=== PATIENT | female | born 1950 | race Caucasian/White ===

== ENCOUNTER 2020-11-10 09:24 | Outpatient (REF) | payer MEDICARE, SELFPAY ==
--- NOTE | ~2020-11-10 | CT_ITS ---
EXAMINATION: CT CHEST SCREENING CLINICAL INFORMATION: Nicotine dependence. COMPARISON: CT chest 10/25/2019. TECHNIQUE: Multidetector volumetric CT imaging of the chest was performed without contrast using low-dose technique. Additional 2D coronal and sagittal reformatted images and axial 3D maximum intensity projection (MIP) images were generated on the CT workstation. This CT examination was performed using dose optimization techniques as appropriate, variously including the following: *Automated exposure control *Adjustment of mA and/or kV according to patient size (this includes techniques or standardized protocols for targeted exams where dose is matched to indication/reason for exam; i.e. extremities or head) *Use of iterative reconstruction technique DLP: 52 mGy-cm FINDINGS: LUNGS: The lungs are well expanded and clear of acute pneumonic process. There is a 3 mm pleural-based left lower lobe nodule (axial image 329/6). The other described parenchymal nodules in the right middle lobe are not well visualized at this time. There are no new nodules seen. There is no consolidation or mass. There is no evidence of emphysema. MEDIASTINUM: The thyroid lobes are symmetrical and normal. The central trachea and the bronchi are widely patent. No abnormal-sized mediastinal or hilar lymph nodes are seen. The heart size and the great vessels are normal caliber. There are coronary artery calcifications present. PLEURA: There is no pleural effusion. No pleural mass or thickening. AXILLAE: No lymphadenopathy. UPPER ABDOMEN: The visualized liver, spleen, and pancreas appear unremarkable. Suspect a small hiatal hernia or distal esophageal thickening from reflux disease. OSSEOUS STRUCTURES: No lytic or sclerotic process seen. CT/CT lung screening IMPRESSION: Only a 3 mm pleural-based left lower lobe nodule is seen. The rest of 1-2 mm described nodules on the previous CT chest are not well visualized on this low screening CT chest exam. ASSESSMENT: Lung-RADS category 2: Benign RECOMMENDATION: Low dose annual CT chest.
== END 2020-11-10 09:25 | disposition home or self-care (01) ==
LOC: HO.CT 09:24
PROVIDERS: Visit Provider Physician Assistant Medical
DX: Z12.2 Encounter for screening for malignant neoplasm of respiratory organs (principal); F17.210 Nicotine dependence, cigarettes, uncomplicated
CPT/HCPCS: 71271

== ENCOUNTER 2022-03-06 07:33 | Outpatient (REF) | payer MEDICARE, SELFPAY ==
[2022-03-06 12:10] LABS: Alanine Aminotransferase 21 U/L (0-31); Albumin Level 4.2 g/dL (3.5-5.0); Alkaline Phosphatase 84 U/L (39-117); Anion Gap 13 (12-20); Aspartate Amino Transferase 23 U/L (5-31); Bilirubin Total 0.2 mg/dL (0.0-1.0); Blood Urea Nitrogen 13 mg/dL (9-16); Calcium 9.1 mg/dL (8.4-10.2); Carbon Dioxide 26 mmol/L (22-29); Chloride 107 mmol/L (96-108); Cholesterol 189 mg/dL; Estimated Glomerular Filt Rate > 60; Glucose Fasting 98 mg/dL (60-99); HDL Cholesterol 44 mg/dL; LDL Cholesterol Calculated 116 mg/dl; Potassium 4.3 mmol/L (3.3-5.1); Sodium 142 mmol/L (135-145); Total Protein 6.8 g/dL (6.5-8.0); Triglycerides 147 mg/dL
[2022-03-06 12:19] LABS: TSH reflex Free T4 1.56 uIU/mL (0.32-4.0); Vitamin D 25-OH Total 18.4 ng/mL (>30)
== END 2022-03-06 07:34 | disposition home or self-care (01) ==
LOC: HO.HMGCLDS 07:33
PROVIDERS: PCP Nurse Practitioner Family; Visit Provider Nurse Practitioner Family
DX: E78.00 Pure hypercholesterolemia, unspecified (principal); Z78.0 Asymptomatic menopausal state
CPT/HCPCS: 36415; 80053; 80061; 82306; 84443

== ENCOUNTER 2022-10-15 13:47 | Outpatient (REF) | payer MEDICARE, SELFPAY ==
--- NOTE | ~2022-10-15 | MM_ITS ---
EXAMINATION: BONE DENSITOMETRY CLINICAL INDICATION: Asymptomatic menopausal state. COMPARISON: None (current study represents initial baseline exam). TECHNIQUE: Using a [employer] DXA System (software version: 13.1) manufactured by [employer], dual-energy x-ray absorptiometry was performed of the lumbar spine and left hip. The images are of good technical quality. Summary results are attached. FINDINGS: AP SPINE L1-L4: BMD 1.361 g/cm2, Z-score 2.8, T-score 1.5, normal. LEFT FEMUR, NECK: BMD 0.883 g/cm2, Z-score 0.4, T-score -1.1, osteopenia. LEFT FEMUR, TOTAL: BMD 1.032 g/cm2, Z-score 1.4, T-score 0.2, normal. IDENTIFIED RISK FACTORS: Menopause. HISTORY OF FRACTURE: None listed. MEDICATIONS: Calcium, vitamin D. MM/XR DEXA axial skeleton IMPRESSION: 1. DIAGNOSIS: Osteopenia based on the lowest T-score value of -1.1 in the femoral neck applying World Health Organization criteria. 2. 10-YEAR FRACTURE RISK PREDICTION, FRAX: Major osteoporotic fracture (clinical spine, forearm, hip or shoulder) 9.1%. Hip fracture 1.0%. 3. Treatment Recommendations: NOF guidelines recommend consideration for treatment in postmenopausal women and men age 50 and older presenting with the following: -A hip or vertebral (clinical or morphometric) fracture. -T-score less than or equal to -2.5 at the femoral neck or spine after appropriate evaluation to exclude secondary causes. -Low bone mass at the hip or spine and a 10-year fracture probability by FRAX of greater than or equal to 3% for hip fracture or greater than or equal to 20% for major osteoporotic fracture based on the [place] adapted WHO algorithm. 4. Other Recommendations: All treatment decisions require clinical judgment and consideration of individual patient factors, including patient preferences, comorbidities, previous drug use, risk factors not captured in the FRAX model (e.g. frailty, falls, vitamin D deficiency, increased bone turnover, interval significant decline in bone density) and possible under or overestimation of fracture risk by FRAX. Additional medical evaluation for secondary cause of low bone mineral density may be appropriate. FUTURE SCAN RECOMMENDATION: People with diagnosed cases of osteoporosis or at high risk for fracture should have regular bone mineral density tests. For patients eligible for Medicare, routine testing is allowed once every 2 years. The testing frequency can be increased to one year for patients who have rapidly progressing disease, those who are receiving or discontinuing medical therapy to restore bone mass, or have additional risk factors.
== END 2022-10-15 13:48 | disposition home or self-care (01) ==
LOC: HO.MAMMO 13:47
PROVIDERS: PCP Nurse Practitioner Family; Visit Provider Nurse Practitioner Family
DX: Z13.820 Encounter for screening for osteoporosis (principal); Z78.0 Asymptomatic menopausal state
CPT/HCPCS: 77080

== ENCOUNTER 2022-10-23 07:27 | Outpatient (REF) | payer MEDICARE, SELFPAY ==
--- NOTE | ~2022-10-23 | MM_ITS ---
EXAMINATION: MM SCREENING DIGITAL BREAST TOMOSYNTHESIS, BILATERAL CLINICAL INFORMATION: Screening. Asymptomatic. The lifetime risk of breast cancer based on the Tyrer-Cuzick Model is 4%. COMPARISON: Mammography: 09/19/2017, 02/19/2017, 08/16/2016, 08/05/2016 TECHNIQUE: Digital breast tomosynthesis is performed in both the craniocaudal and mediolateral oblique views along with computer-aided detection (CAD). Synthesized 2D images are generated from the tomosynthesis. FINDINGS: There are scattered areas of fibroglandular density (ACR BI-RADS breast composition Category b). There are no significant masses, abnormal calcifications, or other abnormalities. Parenchymal pattern is similar to prior studies. There is no developing density or architectural abnormality. Incidental intramammary node again seen mid 9:00 right breast. The axilla and skin contours are unremarkable. No significant changes. MM/MM tomosynthesis screening BI IMPRESSION: No mammographic evidence of malignancy. ASSESSMENT: BI-RADS 2: Benign RECOMMENDATION: Routine annual mammography screening. This patient's information was entered into a reminder system with a target due date for their next mammogram.
== END 2022-10-23 07:28 | disposition home or self-care (01) ==
LOC: HO.MAMMO 07:27
PROVIDERS: PCP Nurse Practitioner Family; Visit Provider Nurse Practitioner Family
DX: Z12.31 Encounter for screening mammogram for malignant neoplasm of breast (principal)
CPT/HCPCS: 77063; 77067

== ENCOUNTER 2023-06-26 07:54 | Outpatient (REF) | payer MEDICARE, SELFPAY ==
[2023-06-26 11:06] LABS: MANUAL DIFF FLAG NO
[2023-06-26 11:25] LABS: Appearance Urine Turbid; Color Urine Yellow; Glucose Urine UA Negative (Negative); Leukocyte Esterase Urine Trace (Negative); Nitrite Urine Negative (Negative); Specific Gravity - Urine 1.025 (1.005-1.025); UMIC TRIGGER UACC YES; Urine Blood Negative (Negative); Urine Ketones Negative (Negative); Urine Protein Negative (Neg-Trace)
[2023-06-26 11:29] LABS: Basophils Absolute Auto 0.1 X10*3/uL (0.0-0.2); Basophils Percent Auto 0.6 % (0-2); Eosinophils Absolute Auto 0.2 X10*3/uL (0.0-0.4); Hematocrit 46.4 % (37.0-47.0); Hemoglobin 15.2 g/dl (12.0-16.0); Imm Gran Abs Auto 0.02 X10*3/uL (0.00-0.03); Imm Gran Pct Auto 0.2 % (0.0-0.4); Lymphocytes Absolute Auto 3.6 X10*3/uL (1.2-4.9); Lymphocytes Percent Auto 44.6 % (20-40); Mean Corpuscular HGB Conc 32.8 g/dl (31.0-35.0); Mean Corpuscular Hemoglobin 31.2 pg (27.0-33.0); Mean Corpuscular Volume 95.3 fL (80.0-98.0); Mean Platelet Volume 10.2 fL (9.4-12.3); Monocytes Absolute Auto 0.5 X10*3/uL (0.1-1.2); Monocytes Percent Auto 6.5 % (2-11); Neutrophils Absolute Auto 3.8 x10*3/uL (2.0-8.3); Neutrophils Percent Auto 46.1 % (45-73); Platelet Count 237 X10*3/uL (160-400); Red Blood Count 4.87 X10*6/uL (4.20-5.50); Red Cell Distribution Width 12.9 % (11.0-16.0); White Blood Count 8.2 X10*3/uL (4.8-10.8)
[2023-06-26 11:56] LABS: Alanine Aminotransferase 21 U/L (0-31); Albumin Level 4.2 g/dL (3.5-5.0); Alkaline Phosphatase 89 U/L (39-117); Anion Gap 17 (12-20); Aspartate Amino Transferase 27 U/L (5-31); Bilirubin Total 0.3 mg/dL (0.0-1.0); Blood Urea Nitrogen 14 mg/dL (9-16); Carbon Dioxide 23 mmol/L (22-29); Chloride 107 mmol/L (96-108); Cholesterol 191 mg/dL (<200); Estimated Glomerular Filt Rate > 60; Glucose Fasting 99 mg/dL (60-99); HDL Cholesterol 42 mg/dL (>40); LDL Cholesterol Calculated 126 mg/dL (<100); Potassium 4.1 mmol/L (3.3-5.1); Sodium 143 mmol/L (135-145); Total Protein 7.3 g/dL (6.5-8.0); Triglycerides 115 mg/dL (<150)
[2023-06-26 12:03] LABS: Bacteria Urine None Seen (None Seen); Calcium Oxalate Crystals Urine Present; Hyaline Casts Urine 0-2 /LPF (0-2); RBC Urine 0-2 /HPF (0-2); WBC Urine 0-5 /HPF (0-5)
[2023-06-26 12:14] LABS: TSH reflex Free T4 1.54 uIU/mL (0.32-4.0)
== END 2023-06-26 07:55 | disposition home or self-care (01) ==
LOC: HO.HMGCLDS 07:54
PROVIDERS: PCP Nurse Practitioner Family; Visit Provider Nurse Practitioner Family
DX: E78.00 Pure hypercholesterolemia, unspecified (principal)
CPT/HCPCS: 36415; 80053; 80061; 81001; 84443; 85025

== ENCOUNTER 2023-06-30 09:40 | Outpatient (AMB) | payer MEDICARE, SELFPAY ==
[2023-06-30 09:49] VITALS: BP 132/88; PULSE 64; O2SAT 97; BMI 27.2
--- NOTE | 2023-06-30 09:49 | MHC.PC.OV ---
Vital Signs 06/30/23 09:49 Height 5 ft 6 in Weight 168 lb 4 oz BMI 27.2 BP 132/88 Blood Pressure Location Rt brachial Position Sitting Pulse 64 Pulse Source Pulse Oximeter Pulse Oximetry (%) 97 Oxygen Delivery Method Room Air Intake Visit Reasons: 5 month follow up Allergies atorvastatin [Lipitor] Allergy (Unknown, Verified 06/30/23 10:07) Hives oxycodone Allergy (Unknown, Unverified 06/30/23 10:07) Hallucinations/Sweats, hallucinations, psych simvastatin Allergy (Unknown, Verified 06/30/23 10:07) Hives Medication List - Last Reconciled 06/30/23 by HERMAN Breen-YARON acetic acid 2% 4 drps otic (ears) TID PRN 5 days ezetimibe 10 mg PO DAILY rosuvastatin 5 mg PO .twice a week Tobacco use date assessed: 06/30/23 Fall risk assessment: No Falls in past year Last assessed Fall Risk: 06/30/23 Dental Screening Dental Screen Date: 06/30/23 Did you have a dental visit in the last 12 months?: No Did you have a dental problem in the last 6 months where you did not have access to dental care?: No Was dental information given to patient?: No HPI 5 month follow up HPI Details Dyslipidemia: Pt is on zetia 10mg and rosuvastatin 5mg twice a week. Labs were performed recently, see results. Will increase rosuvastatin to 10mg twice a week. Denies chest pain, shortness of breath, and dizziness. Will order echo due to systolic murmur. [facility] Medical History Anxiety Surgical History History of laparoscopic appendectomy Hx of section [place] teeth extracted Family History Father Cancer Mother Ovarian cancer Social History Housing: House Alcohol intake: current Alcohol intake frequency: does not drink Patient Tobacco Use Status: Current everyday Tobacco user Cigarettes Per Day: 4 Years Smoked: 18 years old Packs per year/per ci.00 e-Cigarette/Vaping Use: Never Used Second Hand Smoke Exposure: No Current occupational status: retired Current occupational exposures/hazards: No Cognitive needs: No Hearing needs: No Vision needs: No Questionnaire Thrive Questionnaire Date Thrive assessed: 01/29/23 ANGELA-7 AMB Questionnaire ANGELA-7 Date ANGELA - 7 assessed: 01/29/23 Source: Developed by Drs. Darwin Stacy, Mely Gomes, David Perales and colleagues, with an educational maritza from [employer]. Review of Systems Const Reports as per HPI Physical exam (Primary Care) Vital Signs: Last Vital Signs Pulse 64 06/30/23 09:49 BP 132/88 06/30/23 09:49 Pulse Ox 97 06/30/23 09:49 Oxygen Delivery Method Room Air 06/30/23 09:49 BMI result Body Mass Index 27.2 Tobacco/Smoking Status: Tobacco use Status Tobacco use date assessed 06/30/23 06/30/23 09:54 Patient Tobacco Use Status Current everyday Tobacco 06/30/23 09:54 e-Cigarette/Vaping Use Never Used 06/30/23 09:54 Thrive Assessment: Date of Thrive Assessment Date Thrive assessed 01/29/23 06/30/23 09:54 Const General: cooperative Orientation/consciousness: patient oriented x3 Resp Effort & Inspection: normal respiratory effort Auscultation: clear to auscultation bilaterally and diminished lung sounds Cardio Rate: regular rate Rhythm: regular rhythm Heart sounds: S1 normal heart sound present, S2 normal heart sound present and Murmur heart sound present systolic Neuro General: patient oriented x3 Extrem Right lower extremity: no edema Left lower extremity: no edema Psych Appearance: grossly normal Mental Status: mental status grossly normal Speech and movement: Normal speech and movement present Affect: normal affect Attitude: cooperative Thought process: Normal thought process present Thought content: Normal thought content present Insight: Good insight present (Psych) Judgement: Good judgement present (Psych) Assessment and Plan Assessment & Plan (1) Systolic murmur: Code(s): R01.1 - Cardiac murmur, unspecified Plan: Echo orderd (2) Pure hypercholesterolemia: Code(s): E78.00 - Pure hypercholesterolemia, unspecified Plan The patient agreed to the use of a medical aides teacher for this encounter. Scribed for CARLOS Horton by Sabra Venegas medical aides teacher, on 06/30/2023 at 10:05 EST Orders: Orders CA echo transthoracic complete Today R01.1 - Cardiac murmur, unspecified Medications: Changed From rosuvastatin 5 mg PO .twice a week 25 tabs 1RF E78.00 - Pure hypercholesterolemia, unspecified To rosuvastatin 10 mg PO .twice a week 26 tabs 1RF 90 days E78.00 - Pure hypercholesterolemia, unspecified Coding Level of Care Code Est Pt Level 3 (05943) Diagnoses Systolic murmur R01.1 Pure hypercholesterolemia E78.00
== END 2023-06-30 13:54 | disposition home or self-care (01) ==
PROVIDERS: Visit Provider Nurse Practitioner Family
DX: R01.1 Cardiac murmur, unspecified (principal); E78.00 Pure hypercholesterolemia, unspecified
CPT/HCPCS: 99213

== ENCOUNTER → 2023-08-05 09:57 | Outpatient (REF) | payer MEDICARE, SELFPAY ==
--- NOTE | 2023-08-05 10:02 | CA_ITS ---
Transthoracic Echocardiogram Patient (Last, First, Middle): Carolina Amezcua, Gender: Female Date of : 1950 Age: 73 Procedure Date: 08/05/2023 Procedure Type: Transthoracic Echocardiogram Location: OP Height: 167.64 cm Weight: 75.3 kg BSA: 1.85 m2 Heart Rate: bpm BP: 130 / 78 mmHg Fork Truck Operator: TO Referring MD: Kalyan Arguelles [facility] [employer] Worker: Pepe Downs MD Symptoms: R01.1 - Cardiac murmur, unspecified Study Quality: Fair ECG Rhythm: Sinus Conclusions: - 1. Normal LV ejection fraction 65-70% with impaired relaxation filling pattern 2. Mild calcific aortic stenosis with moderate mitral calcification 3. Normal RV systolic pressure 4. No gross pericardial effusion 5. Mildly dilated ascending aorta 3.7 cm Findings Procedure Information The patient declines contrast. Left Ventricle Normal left ventricular size, thickness, and systolic function. The visually estimated ejection fraction is between 65-70%. Spectral Doppler is indicative of an impaired relaxation filling pattern. E/E prime ratio is between 8 and 15 consistent with indeterminate filling pressures. There is mild septal asymmetric hypertrophy. Right Ventricle Normal right ventricular cavity size and systolic function. Atria The left atrium is likely dilated. Interatrial shunt cannot be excluded. The right atrium is normal in size. Aortic Valve There is moderate calcification of the aortic valve. There is moderate thickening of the aortic valve. There is mild aortic valve stenosis. The peak aortic gradient is 20 mmHg.The mean gradient is 12 mmHg. The aortic valve area is 1.83 cm2. There is no aortic valve regurgitation. Mitral Valve There is mild anterior and moderate posterior mitral leaflet thickening. There is moderate mitral annular calcification. There is trace mitral valve regurgitation. There is no mitral valve stenosis. Pulmonic Valve The pulmonic valve is likely normal. There is trace pulmonic valve regurgitation. Tricuspid Valve Normal tricuspid valve structure. There is mild tricuspid valve regurgitation. The right ventricular systolic pressure is normal. The right ventricular systolic pressure is 30 mmHg. Normal right atrial pressure. There is no evidence of pulmonary hypertension. Great Vessels The pulmonary artery was not well visualized. There is mild dilatation of the ascending aorta measuring 3.70 cm. Venous The inferior vena cava is normal in size and collapses greater than 50% with inspiration. Pericardium/Pleural There is no evidence of pericardial effusion. Prior Study Comparison Changes noted compared to prior study dated: 06/30/2019. Mild aortic stenosis is present Measurements 2D Linear Measurements IVSd: 1.35 0.6-0.9/0.6-1.0 cm LVIDd: 4.05 3.9-5.3/4.2-5.9 cm LVIDd Index: 2.19 2.4-3.2/2.2-3.1 cm/m2 LVIDs: 2.52 2.0-3.6 cm LVPWd: 0.72 0.7-1.1 cm LA Diam: 3.70 2.7-3.8/3.0-4.0 cm LAIDs Index: 2.00 1.5-2.3 cm/m2 LV Mass: 169.65 67-162/88-224 g LV Mass Index: 91.70 43-95/49-115 g/m2 LVOT Diam: 2.10 3.0+(-)1.3 cm 2D Systolic Function EF 4C: 71.10 >55% EF 2C: 69.90 >55% EF BiP: 70.40 >55% Mitral Valve MV Pk E: 0.88 MV PK A: 0.93 MV Decel Time: 210.00 E/A: 0.90 E'Lateral: 7.18 E'Medial: 5.33 E/E' Med: 16.50 E/E' Lat: 12.20 PHT: 61.00 MVA PHT: 3.61 Decel [place]: 4.19 Aortic Valve AoV Pk Jeremy: 2.25 AoV Mn Jeremy: 1.68 AoV VTI: 0.51 AoV Pk Grad: 20.00 Aov Mn Grad: 12.00 LYLA Cont.VTI: 1.83 LYLA Method: Pressure Half Time LVOT LVOT Pk Jeremy: 1.11 LVOT Mn Jeremy: 0.72 LVOT VTI: 0.26 LVOT Pk Grad: 5.00 LVOT Mn Grad: 2.00 LVOT Diam: 2.10 LVOT Area: 3.46 Diastolic Function MV Pk E: 0.88 MV Pk A: 0.93 E/A: 0.90 E'Medial: 5.33 E/E' Med: 16.50 E' Laterial: 7.18 E/E' Lat: 12.20 Right Ventricle TAPSE (mm): 23.00 TVS' Jeremy: 12.10 Tricuspid Valve TR Pk Jeremy: 2.61 TR Pk Grad: 27.00 RA Press: 3.00 RVSP: 30.00 Great Vessels Aorta Sinus of Valsalva: 3.16 2.0-3.5 cm Ao Asc: 3.70 2.1-3.4 cm Updated in Other Vendor System with Status of Final Pepe Downs MD electronically signed on 08/05/2023 12:21:39 PM with status of Final
== END ==
LOC: HO.CARD 09:57
PROVIDERS: PCP Nurse Practitioner Family; Visit Provider Nurse Practitioner Family
DX: R01.1 Cardiac murmur, unspecified (principal)
CPT/HCPCS: 93306

== ENCOUNTER → 2023-08-05 10:02 | Outpatient (BNV) | payer MEDICARE, SELFPAY | PROVIDERS: PCP Nurse Practitioner Family; Visit Provider Internal Medicine Cardiovascular Disease | DX: I35.0 Nonrheumatic aortic (valve) stenosis (principal) | CPT/HCPCS: 93306 ==

== ENCOUNTER 2024-02-03 09:09 | Outpatient (AMB) | payer MEDICARE, SELFPAY ==
--- NOTE | 2024-02-03 09:11 | A.OFFPC_ITS ---
Intake Visit Reasons: SWV [id number] Allergies atorvastatin [Lipitor] Allergy (Unknown, Verified 06/30/23 10:07) Hives oxycodone Allergy (Unknown, Unverified 06/30/23 10:07) Hallucinations/Sweats, hallucinations, psych simvastatin Allergy (Unknown, Verified 06/30/23 10:07) Hives Tobacco use date assessed: 06/30/23 Dental Screening Dental Screen Date: 06/30/23 [facility] Medical History Anxiety Surgical History History of laparoscopic appendectomy Hx of section [place] teeth extracted Family History Father Cancer Mother Ovarian cancer Social History Housing: House Alcohol intake: current Alcohol intake frequency: does not drink Patient Tobacco Use Status: Current everyday Tobacco user Cigarettes Per Day: 4 Years Smoked: 18 years old e-Cigarette/Vaping Use: Never Used Second Hand Smoke Exposure: No Current occupational status: retired Current occupational exposures/hazards: No Cognitive needs: No Hearing needs: No Vision needs: No Questionnaire Thrive Questionnaire Date Thrive assessed: 01/29/23 ANGELA-7 AMB Questionnaire ANGELA-7 Date ANGELA - 7 assessed: 01/29/23 Source: Developed by Drs. Darwin Stacy, Mely Gomes, David Perales and colleagues, with an educational maritza from [employer]. Physical exam (Primary Care) Tobacco/Smoking Status: Tobacco use Status Tobacco use date assessed 06/30/23 06/30/23 09:54 Patient Tobacco Use Status Current everyday Tobacco 06/30/23 09:54 e-Cigarette/Vaping Use Never Used 06/30/23 09:54 Thrive Assessment: Date of Thrive Assessment Date Thrive assessed 01/29/23 06/30/23 09:54 Coding
[2024-02-03 09:15] VITALS: BP 120/90; PULSE 68; O2SAT 96; BMI 26.6
--- NOTE | 2024-02-03 09:16 | AM.OFFVISMDC ---
Intake Vital Signs 02/03/24 09:15 Height 5 ft 6 in Weight 165 lb BMI 26.6 BP 120/90 H Blood Pressure Location Rt brachial Position Sitting Pulse 68 Pulse Source Pulse Oximeter Pulse Oximetry (%) 96 Oxygen Delivery Method Room Air Intake Visit Reasons: SWV [id number] Allergies atorvastatin [Lipitor] Allergy (Unknown, Verified 02/03/24 09:31) Hives oxycodone Allergy (Unknown, Unverified 02/03/24 09:31) Hallucinations/Sweats, hallucinations, psych simvastatin Allergy (Unknown, Verified 02/03/24 09:31) Hives Medication List - Last Reconciled 02/03/24 by HERMAN Breen-YARON acetic acid 2% 4 drps otic (ears) TID PRN 5 days ezetimibe 10 mg PO DAILY rosuvastatin 10 mg PO .twice a week 90 days Do you need a note to return to daycare/school/sports/work: No HPI SWV [id number] HPI Details Pt is here for an SWV. Denies fever, chills, and dizziness. [place] of care in scan pile. PPP will be scanned in chart and copy will be given to pt. pt will make her own colon screening appt (letter received via mail to do this), pt will also call for a follow up for a LDCT. HPI Comments History of Present Illness Details dyslipidemia: on a statin and zetia, will recheck labs. Pt c/o right upper pelvic discomfort. She reports that this has been present for 2 weeks and is worse with movement, Will order US. [facility] Medical History Anxiety Surgical History History of laparoscopic appendectomy Hx of section [place] teeth extracted Family History Father Cancer Mother Ovarian cancer Social History Housing: House Alcohol intake: current Alcohol intake frequency: does not drink Patient Tobacco Use Status: Current everyday Tobacco user Cigarettes Per Day: 4 Years Smoked: 18 years old e-Cigarette/Vaping Use: Never Used Second Hand Smoke Exposure: No Current occupational status: retired Current occupational exposures/hazards: No Cognitive needs: No Hearing needs: No Vision needs: No Questionnaire Medicare Wellness Checkup [age] What gender do you identify with?: female During the past 4 weeks, how much have you been bothered by emotional problems such as feeling anxious, depressed, irritable, sad or downhearted, and blue?: not at all During the past 4 weeks, has your physical & emotional health limited your social activities with family, friends, neighbors, or groups?: not at all During the past 4 weeks, how much bodily pain have you generally had?: no pain During the past 4 weeks, was someone available to help you if you needed & wanted help?: yes, as much as I wanted During the past 4 weeks, what was the hardest physical activity you could do for at least 2 minutes?: moderate Can you get to places out of walking distance without help? (For eg., can you travel alone on buses, taxis or drive your car?): Yes Can you go shopping for groceries or clothes without someone's help?: Yes Can you prepare your own meals?: Yes Can you do your housework without help?: Yes Because of any health problems, do you need the help of another person with your personal care needs such as eating, bathing, dressing or getting around the house?: No Can you handle your own money without help?: Yes During the past 4 weeks, how would you rate your health in general?: very good During the past 4 weeks how have things been going for you?: pretty well Are you having difficulties driving your car?: no Do you always fasten your seat belt when you are in a car?: yes, usually During past 4 weeks, have you been bothered by the following: never: Falling or dizzy when standing up, Sexual problems?, Trouble eating well?, Teeth or denture problems?, Problems using the telephone? and Tiredness or fatigue? Have you fallen 2 or more times in the past year?: No Are you a smoker?: yes, but I'm not ready to quit During the past 4 weeks, how many drinks of wine, beer, or other alcoholic beverages did you have?: no alcohol at all Do you exercise for about 20 minutes 3 or more times a week?: yes, some of the time Have you been given information to help with the following?: yes: Hazards in your house that might hurt you? and yes: Keeping track of your medications? How often do you have trouble taking medicines the way you have been told to take them?: I always take medicine as prescribed How confident are you that you can control & manage most of your health problems?: very confident What is your race?: White Mini Mental State Exam (MMSE) Orientation What is the (year) (season) (date) (day) (month)?: year (2023), season (spring), date (correct), day (correct) and month (correct) Where are we (state) (county) (town or city) (hospital) (floor)?: state, county, town or city, hospital/clinic and floor Registration Name of 3 unrelated objects clearly and slowly, then ask patient to repeat all 3 of them. (1st repeat determines score. Make sure they can repeat all three): object 1, object 2 and object 3 Attention & Calculation (CHOOSE ONE) Spell WORLD backwards (DLROW): 5 letters Recall Ask patient to repeat the 3 items from question #3.: object 1, object 2 and object 3 Language Show patient a wristwatch & ask what it is. Repeat for pencil.: watch Ask the patient to repeat the phrase 'No ifs, ands, or buts' after you.: correct Ask the patient to 'take a piece of paper with their right hand' 'fold paper in half' 'place paper on floor': take paper in right hand, fold paper in half and place paper on floor Print the sentence 'CLOSE YOUR EYES' on a piece. If patient actually closes eyes then score.: followed written direction Give patient a blank piece of paper & ask to write a sentence. Score if it contains a noun & verb.: sentence contains subject and verb Ask patient to copy figure of intersecting pentagons exactly. Score if all 10 angles & 2 intersects are included.: all 10 angles present & 2 are intersected Score Score: 29 Activity of Daily Living Bathing - sponge bath, tub bath or shower: receives no assistance (gets in/out by self, if usual bathing means Dressing - getting clothes from closets & drawers, including inner/outer garments & fasteners.: gets clothes & gets completely dressed without help Toileting - going to the 'toilet room' for urine/bowel elimination & cleaning self/arranging clothes: goes to toilet room, cleans self, arranges clothes without help Transfer: moves in & out of bed and chair without help (may use support object) Continence: controls urination/bowel movements completely by self Feeding: feeds self without help Total Score: 0 Information obtained from: patient Using telephone: independent Traveling: independent Shopping: independent Preparing meals: independent Housework: independent Taking medicine: independent Managing money: independent PHQ-9 Over the last 2 weeks, how often have you been bothered by any of the following problems? 1. Little interest or pleasure in doing things: not at all 2. Feeling down, depressed, or hopeless: not at all 3. Trouble falling or staying asleep, or sleeping too much: not at all 4. Feeling tired or having little energy: not at all 5. Poor appetite or overeating: not at all 6. Feeling bad about yourself - or that you are a failure or have let yourself or your family down: not at all 7. Trouble concentrating on things, such as reading the newspaper or watching television: not at all 8. Moving or speaking so slowly that other people could have noticed. Or the opposite - being so fidgety or restless that you have been moving around a lot more than usual: not at all 9. Thoughts that you would be better off or of hurting yourself in some way: not at all Total score: 0 Depression Screening Interpretation: Negative Depression Screening Done: Yes 34834 - PHQ-9 Billing: Yes Source: Developed by Drs. Darwin Stacy, Mely Gomes, David Perales and colleagues, with an educational maritza from [employer]. Review of Systems Const Reports as per HPI Physical Exam Vital Signs: Last Vital Signs Pulse 68 02/03/24 09:15 BP 120/90 H 02/03/24 09:15 Pulse Ox 96 02/03/24 09:15 Oxygen Delivery Method Room Air 02/03/24 09:15 BMI result Body Mass Index 26.6 Const General: cooperative Orientation/consciousness: patient oriented x3 Resp Other: faint scattered wheezes Effort & Inspection: normal respiratory effort Cardio Rate: regular rate Rhythm: regular rhythm Heart sounds: S1 normal heart sound present, S2 normal heart sound present and Murmur heart sound present systolic GI Other: tenderness with palpation of right upper pelvic region Neuro Other: - romberg, can tandem walk, can walk and turn, can rise from sitting to standing, passed whisper test General: patient oriented x3 Extrem Right lower extremity: no edema Left lower extremity: no edema Psych Appearance: grossly normal Mental Status: mental status grossly normal Speech and movement: Normal speech and movement present Affect: normal affect Attitude: cooperative Thought process: Normal thought process present Thought content: Normal thought content present Insight: Good insight present (Psych) Judgement: Good judgement present (Psych) Assessment & Plan Assessment & Plan (1) Encounter for subsequent annual wellness visit (AWV) in Medicare patient: Code(s): Z00.00 - Encounter for general adult medical examination without abnormal findings Plan: Forms filled out (2) Pure hypercholesterolemia: Code(s): E78.00 - Pure hypercholesterolemia, unspecified Plan: labs ordered (3) Pelvic pain in female: Code(s): R10.2 - Pelvic and perineal pain Plan: US ordered Plan The patient agreed to the use of a caregivers non medical for this encounter. Scribed for HERMAN Horton- by Sabra Venegas caregivers non medical, on 02/03/2024 at 09:20 EST. Orders: Orders Complete Blood Count Auto Diff Today E78.00 - Pure hypercholesterolemia, unspecified TSH reflex Free T4 Today E78.00 - Pure hypercholesterolemia, unspecified Lipid Panel Today E78.00 - Pure hypercholesterolemia, unspecified US pelvic and transvaginal Today R10.2 - Pelvic and perineal pain Comprehensive [place]. Panel Fast Today E78.00 - Pure hypercholesterolemia, unspecified UA CC w/rflx Micro + Cult Today E78.00 - Pure hypercholesterolemia, unspecified Quality Reporting (2019) Depression/Bipolar (159/160/161/177) PHQ-9: Total score: 0 Coding Level of Care Code Medicare Subsequent (G0439) Est Pt Level 3 (08093) Diagnoses Encounter for subsequent annual wellness visit (AWV) in Medicare patient Z00.00 Pure hypercholesterolemia E78.00 Pelvic pain in female R10.2 CPT Codes Advance Care Planning - Time spent: 1-15 minutes, on File ([id number]) Advance Care Planning Forms completed: Health Care Proxy (form almost complete, needs signatures), MOLST (pt filled out) and Living will (pt reports this is already done) Time spent: 1-15 minutes, on File Actual minutes spent: 15
== END 2024-02-03 09:57 | disposition home or self-care (01) ==
PROVIDERS: PCP Nurse Practitioner Family; Visit Provider Nurse Practitioner Family
DX: Z00.00 Encounter for general adult medical examination without abnormal findings (principal); E78.00 Pure hypercholesterolemia, unspecified; R10.2 Pelvic and perineal pain
CPT/HCPCS: 1123F; 99213; G0439

== ENCOUNTER 2024-02-06 12:47 | Outpatient (REF) | payer MEDICARE, SELFPAY ==
--- NOTE | ~2024-02-06 | US_ITS ---
EXAMINATION: US PELVIS COMPLETE CLINICAL INFORMATION: Pelvic and perineal pain COMPARISON: CT abdomen pelvis 12/19/2018 TECHNIQUE: Transabdominal and transvaginal imaging was performed. FINDINGS: The uterus is of normal size and echogenicity measuring 6.1 x 3.2 x 4.7 cm. A regular homogeneous endometrium is identified measuring 0.5 cm. Small amount of fluid in the endometrial canal. The right ovary measures 2.3 x 1.0 x 1.2 cm for a volume of 1.4 mL and is unremarkable in appearance. The left ovary was not identified. No adnexal mass. Prominent left adnexal vessels which can be seen in the setting of pelvic venous congestion syndrome in the appropriate clinical setting. There is no pelvic free fluid. US/US pelvic and transvaginal IMPRESSION: * Small amount of fluid in the endometrial canal. The endometrium measures 5 mm in thickness for which correlation with any symptoms of postmenopausal bleeding is recommended and gynecologic evaluation and management. * The left ovary was not identified. No adnexal mass. * Prominent left adnexal vessels which can be seen in the setting of pelvic venous congestion syndrome in the appropriate clinical setting.
== END 2024-02-06 12:48 | disposition home or self-care (01) ==
LOC: HO.HMGCX 12:47
PROVIDERS: PCP Nurse Practitioner Family; Visit Provider Nurse Practitioner Family
DX: R10.2 Pelvic and perineal pain (principal)
CPT/HCPCS: 76830; 76856

== ENCOUNTER 2024-02-18 11:40 | Outpatient (AMB) | payer MEDICARE, SELFPAY ==
--- NOTE | 2024-02-18 11:43 | A.OFFVIS_ITS ---
Vital Signs 02/18/24 11:52 Height 5 ft 6 in Weight 163 lb 2.273 oz BMI 26.3 BP 122/80 Intake Visit Reasons: Pelvic pain Book Binder Required: No Information Interpreted: non-clinical & clinical Accompanied by: Self / Same As Patient Allergies atorvastatin [Lipitor] Allergy (Unknown, Verified 02/18/24 11:53) Hives oxycodone Allergy (Unknown, Unverified 02/18/24 11:53) Hallucinations/Sweats, hallucinations, psych simvastatin Allergy (Unknown, Verified 02/18/24 11:53) Hives Post menopausal: Yes HPI Comments Details: The patient is presenting complaining of pelvic pain more on the right upper side , no associated vaginal bleeding, discharge, any urinary or GI symptoms. The pain has resolved recently. Pelvic ultrasound done in 02/19 showed the following: The uterus is of normal size and echogenicity measuring 6.1 x 3.2 x 4.7 cm. A regular homogeneous endometrium is identified measuring 0.5 cm. Small amount of fluid in the endometrial canal. The right ovary measures 2.3 x 1.0 x 1.2 cm for a volume of 1.4 mL and is unremarkable in appearance. The left ovary was not identified. No adnexal mass. Prominent left adnexal vessels which can be seen in the setting of pelvic venous congestion syndrome in the appropriate clinical setting. There is no pelvic free fluid. [facility] Medical History Anxiety Surgical History History of laparoscopic appendectomy Hx of section [place] teeth extracted Family History Father Cancer Mother Ovarian cancer Social History Housing: House Alcohol intake: current Alcohol intake frequency: does not drink Patient Tobacco Use Status: Current everyday Tobacco user Cigarettes Per Day: 4 Years Smoked: 18 years old e-Cigarette/Vaping Use: Never Used Second Hand Smoke Exposure: No Current occupational status: retired Current occupational exposures/hazards: No Cognitive needs: No Hearing needs: No Vision needs: No Physical Exam Vital Signs: Last Vital Signs BP 122/80 02/18/24 11:52 BMI result Body Mass Index 26.3 Office Procedures Endometrial Biopsy Details: The patient was counseled regarding the indication and benefits of endometrial sampling to rule out endometrial pathology including not limited to endometrial hyperplasia or endometrial cancer and others; The alternatives (Either do nothing vs. hysteroscopy D&C) & the risks were discussed with the patient including but not limited: pain, uterine perforation, bleeding, infection, possible injury to bladder, bowel, ureter, possible need for blood transfusion with all its possible risks. The patient verbalized understanding all questions answered and signed consent. The patient was placed into the dorsal lithotomy position; a speculum was inserted in the vagina. Using aseptic technique for the procedure, the cervix was cleansed with Betadine. The anterior lip of the cervix was grasped with a single tooth tenaculum. The uterus was sounded to 6 cm with a 4 mm Pipelle was used. Tissues samples were obtained and placed in formalin, in a patient labeled container and sent to the pathology department. At the end of the procedure, there was minimal bleeding noted The patient tolerated the procedure well and was discharged in good condition with the following instructions: Nothing in the vagina until the bleeding stops. No sex until the bleeding stops, to call if any of the following occurs: fever (>100.4), flu-like symptoms, abdominal pain, heavy bleeding, four smelling vaginal discharge. The patient was instructed to schedule a Follow up appointment in 2 weeks to discuss pathology results of the biopsy and treatment options. This note was generated with a voice recognition program. Some errors may have been overlooked during the review of this note. Sometimes these errors may affect the content or meaning of a given sentence. [id number] Biopsy Assessment & Plan Assessment & Plan (1) Pelvic pain in female: Comment: Possible pelvic congestion syndrome Code(s): R10.2 - Pelvic and perineal pain Category: Medical Plan: Urine dip done in the office was negative. GC/CT taken. Discussed with the patient the finding on ultrasound showing a thickened endometrium with endometrial fluid, endometrial sampling recommended in addition discussed with the patient the nonvisualization of the left adnexa and the finding of left sided pelvic congestion syndrome although the findings on the left side and given the location of the pain on the right side, it is unlikely that this is related to pelvic congestion syndrome. Discussed with the patient the pelvic congestion syndrome treatment options, All questions answered, the patient verbalized understanding would like to proceed with expectant management and will call back in case symptoms persist or get worse. Instructions given to patient to follow-up with her PCP for further workup if the pain recurs to explore other non operations chief causes of the pain (2) Fluid in endometrial cavity: Comment: 5 mm endometrial thickness in menopause Code(s): N85.9 - Noninflammatory disorder of uterus, unspecified Category: Medical Plan: Discussed with the patient endometrial thickness above 4 mm in menopause with fluid in the endometrial cavity , the differential diagnosis of a thickened endometrium includes but not limited to endometrial polyp, hyperplasia or carcinoma. Explained to the patient that endometrial each thickness is less predictive of endometrial neoplasia in asymptomatic patients, i.e. those without postmenopausal uterine bleeding. The sensitivity and specificity for detecting endometrial carcinoma at an endometrial thickness of >= 5mm was 83 and 72 percent, respectively; this is lower than in patients with bleeding. Studies have shown that postmenopausal patients without uterine bleeding who had an endometrial thickness >11 mm had an endometrial carcinoma risk of 6.7 percent; this risk is similar to postmenopausal patients with bleeding and an endometrial thickness >5 mm. Recommended endometrial sampling to rule endometrial pathology via either office endometrial biopsy or diagnostic hysteroscopy/D&C with possible polypectomy/myomectomy. All pros and cons, risks and benefits of each approach were discussed with the patient, the patient decided to proceed with endometrial biopsy. EMB done, see procedure note. All questions answered, the patient verbalized understanding. Orders: Orders AMB Endometrial Biopsy Today N85.9 - Noninflammatory disorder of uterus, unspecified Coding Level of Care Code New Pt Level 3 (42037) Diagnoses Pelvic pain in female R10.2 Fluid in endometrial cavity N85.9 CPT Codes Endometrial Biopsy - CPT: 79706-Eeifssnykkr Biopsy ([id number])
[2024-02-18 11:52] VITALS: BP 122/80; BMI 26.3
== END 2024-02-18 12:36 | disposition home or self-care (01) ==
PROVIDERS: PCP Nurse Practitioner Family; Visit Provider Obstetrics & Gynecology
DX: R10.2 Pelvic and perineal pain (principal); N85.9 Noninflammatory disorder of uterus, unspecified
CPT/HCPCS: 58100; 99203

== ENCOUNTER 2024-02-18 11:40 | Outpatient (REF) | payer MEDICARE, SELFPAY ==
[2024-02-18 18:18] LABS: CT PCR NOT DETECTED (Not Detect.); NG PCR NOT DETECTED (Not Detect.)
== END 2024-02-18 11:41 | disposition home or self-care (01) ==
LOC: HO.LNP 11:40
PROVIDERS: PCP Nurse Practitioner Family; Visit Provider Obstetrics & Gynecology
DX: N85.9 Noninflammatory disorder of uterus, unspecified (principal); R10.2 Pelvic and perineal pain
CPT/HCPCS: 0353U; 58100; 88305; 99202

== ENCOUNTER 2024-02-19 09:01 | Outpatient (REF) | payer MEDICARE, SELFPAY ==
--- NOTE | ~2024-02-19 | MM_ITS ---
EXAMINATION: MM SCREENING DIGITAL BREAST TOMOSYNTHESIS, BILATERAL CLINICAL INFORMATION: Screening. Asymptomatic. COMPARISON: Mammography: This study is compared with prior exams dating back to 2017. TECHNIQUE: Digital breast tomosynthesis is performed in both the craniocaudal and mediolateral oblique views along with computer-aided detection (CAD). Synthesized 2D images are generated from the tomosynthesis. FINDINGS: The breasts are almost entirely fatty (ACR BI-RADS breast composition Category a). There are no significant masses, abnormal calcifications, or other abnormalities. MM/MM tomosynthesis screening BI IMPRESSION: No mammographic evidence of malignancy. ASSESSMENT: BI-RADS BI-RADS 1 - Negative RECOMMENDATION: Routine annual mammography screening. 1 year F/U This examination should not preclude the clinical evaluation of a suspicious palpable abnormality. This patient's information was entered into a reminder system with a target due date for their next mammogram.
== END 2024-02-19 09:02 | disposition home or self-care (01) ==
LOC: HO.MAMMO 09:01
PROVIDERS: Visit Provider Nurse Practitioner Family
DX: Z12.31 Encounter for screening mammogram for malignant neoplasm of breast (principal)
CPT/HCPCS: 77063; 77067

== ENCOUNTER → 2024-02-19 09:15 | Outpatient (BNV) | payer MEDICARE, SELFPAY | PROVIDERS: Visit Provider Radiology Diagnostic Radiology | DX: Z12.31 Encounter for screening mammogram for malignant neoplasm of breast (principal) | CPT/HCPCS: 77063; 77067 ==

== ENCOUNTER 2024-03-30 09:37 | Outpatient (AMB) | payer MEDICARE, SELFPAY ==
[2024-03-30 09:42] VITALS: BP 144/80; BMI 26.3
--- NOTE | 2024-03-30 09:42 | A.OFFVIS_ITS ---
Vital Signs 03/30/24 09:42 Height 5 ft 6 in Weight 163 lb 2.273 oz BMI 26.3 BP 144/80 H Intake Visit Reasons: 3-4w f/u EMB results Allergies atorvastatin [Lipitor] Allergy (Unknown, Verified 02/18/24 11:53) Hives oxycodone Allergy (Unknown, Unverified 02/18/24 11:53) Hallucinations/Sweats, hallucinations, psych simvastatin Allergy (Unknown, Verified 02/18/24 11:53) Hives HPI Comments Details: The patient is presenting after endometrial biopsy. The patient has no complaints, no vaginal bleeding, no feverishness chills or abdominal pain. The endometrial biopsy pathology report showed the following: Endometrium, biopsy: Scant strips of benign atrophic endometrium with focal met aplastic changes and benign endocervical glandular epithelium with benign cyst; no atypia or carcinoma [facility] Medical History Anxiety Surgical History History of laparoscopic appendectomy Hx of section [place] teeth extracted Family History Father Cancer Mother Ovarian cancer Social History Housing: House Alcohol intake: current Alcohol intake frequency: does not drink Patient Tobacco Use Status: Current everyday Tobacco user Cigarettes Per Day: 4 Years Smoked: 18 years old e-Cigarette/Vaping Use: Never Used Second Hand Smoke Exposure: No Current occupational status: retired Current occupational exposures/hazards: No Cognitive needs: No Hearing needs: No Vision needs: No Review of Systems Const All systems reviewed & are unremarkable except as noted in HPI and below Reports as per HPI and Reports no additional complaints GI Reports no additional complaints Reports no additional complaints Physical Exam Vital Signs: Last Vital Signs BP 144/80 H 03/30/24 09:42 BMI result Body Mass Index 26.3 Assessment & Plan Assessment & Plan (1) Fluid in endometrial cavity: Comment: 5 mm endometrial thickness in menopause Code(s): N85.9 - Noninflammatory disorder of uterus, unspecified Category: Medical Plan: Discussed with the patient the results of the endometrial biopsy. Discussed with the patient the sensitivity, specificity, positive and negative predictive value, of endometrial biopsy in detecting endometrial pathology including but not limited to endometrial hyperplasia, cancer and other pathology; instructed the patient to call in case vaginal bleeding bleeding recurs, the next step will be to proceed with a diagnostic hysteroscopy/D&C for further endometrial sampling evaluation to rule out endometrial pathology. All questions answered and the patient verbalized understanding and agreed with the plan. Coding Level of Care Code Est Pt Level 3 (79134) Diagnoses Fluid in endometrial cavity N85.9
== END 2024-03-30 13:12 | disposition home or self-care (01) ==
PROVIDERS: PCP Nurse Practitioner Family; Visit Provider Obstetrics & Gynecology
DX: N85.9 Noninflammatory disorder of uterus, unspecified (principal)
CPT/HCPCS: 99213

== ENCOUNTER → 2024-03-30 09:37 | Outpatient (BNVA) | payer MEDICARE, SELFPAY | PROVIDERS: PCP Nurse Practitioner Family; Visit Provider Obstetrics & Gynecology | DX: N85.9 Noninflammatory disorder of uterus, unspecified (principal) | CPT/HCPCS: 99212 ==

== ENCOUNTER → 2024-07-23 09:46 | Outpatient (REF) | payer MEDICARE, SELFPAY ==
--- NOTE | 2024-07-23 09:52 | CA_ITS ---
Transthoracic Echocardiogram Patient (Last, First, Middle): Carolina Amezcua, Gender: Female Date of : 1950 Age: 74 Procedure Date: 07/23/2024 Procedure Type: Transthoracic Echocardiogram Location: OP Height: 167.64 cm Weight: 73.94 kg BSA: 1.83 m2 Heart Rate: 80 bpm BP: 142 / 84 mmHg Main Line Assembler: SB Referring MD: Kalyan Arguelles [facility] Symptoms: I35.0 - Nonrheumatic aortic (valve) stenosis Study Quality: Fair but adequate ECG Rhythm: Sinus Conclusions: - Normal left ventricular size and systolic function. There is mildly increased left ventricular wall thickness. The visually estimated ejection fraction is between 60-65%. - E/E prime ratio is between 8 and 15 consistent with indeterminate filling pressures. - Normal right ventricular cavity size and systolic function. - There is mild aortic valve stenosis. - There is moderate mitral annular calcification. - There is trace mitral valve regurgitation. - There is mild dilatation of the ascending aorta measuring 4.00 cm. Findings Left Ventricle Normal left ventricular size and systolic function. There is mildly increased left ventricular wall thickness. The visually estimated ejection fraction is between 60-65%. There is no evidence of regional wall motion abnormalities. Abnormal diastolic function is noted. Spectral Doppler is indicative of an impaired relaxation filling pattern. E/E prime ratio is between 8 and 15 consistent with indeterminate filling pressures. Right Ventricle Normal right ventricular cavity size and systolic function. Atria The left atrium is normal in size. The right atrium is normal in size. Aortic Valve There is a normal trileaflet aortic valve. There is mild calcification of the aortic valve. There is mild aortic valve stenosis. The peak aortic velocity is 2.79 m/s. The mean gradient is 16 mmHg. There is no aortic valve regurgitation. Mitral Valve There is moderate mitral annular calcification. There is trace mitral valve regurgitation. There is no mitral valve stenosis. Pulmonic Valve There is no pulmonic valve regurgitation. Tricuspid Valve Normal tricuspid valve structure. There is trace tricuspid valve regurgitation. Normal right atrial pressure. There is no evidence of pulmonary hypertension. Great Vessels There is mild dilatation of the ascending aorta measuring 4.00 cm. The visualized portions of the pulmonary artery and branches are normal. Venous The inferior vena cava is normal in size and collapses greater than 50% with inspiration. Pericardium/Pleural There is no evidence of pericardial effusion. There is a small pleural effusion. Prior Study Comparison Changes noted compared to prior study dated: 08/05/2023. Mild dilation of aorta 4 cm (previously was 3.7 cm). Measurements 2D Linear Measurements IVSd: 0.98 0.6-0.9/0.6-1.0 cm LVIDd: 3.79 3.9-5.3/4.2-5.9 cm LVIDd Index: 2.07 2.4-3.2/2.2-3.1 cm/m2 LVIDs: 2.31 2.0-3.6 cm LVPWd: 0.94 0.7-1.1 cm LA Diam: 3.70 2.7-3.8/3.0-4.0 cm LAIDs Index: 2.02 1.5-2.3 cm/m2 LV Mass: 136.08 67-162/88-224 g LV Mass Index: 74.36 43-95/49-115 g/m2 LVOT Diam: 2.30 3.0+(-)1.3 cm 2D Systolic Function EF 2C: 65.30 >55% Mitral Valve MV VTI: 0.26 MV Pk Jeremy: 1.26 MV Mn Jeremy: 0.71 MV Pk Grad: 6.00 MV Mn Grad: 2.00 MV Pk E: 0.69 MV PK A: 1.05 MV Decel Time: 246.00 E/A: 0.70 E'Lateral: 5.44 E'Medial: 4.90 E/E' Med: 14.20 E/E' Lat: 12.80 PHT: 72.00 MVA PHT: 3.06 MVA Continuity: 4.29 Decel [place]: 2.82 Aortic Valve AoV Pk Jeremy: 2.79 AoV Mn Jeremy: 1.83 AoV VTI: 0.55 AoV Pk Grad: 31.00 Aov Mn Grad: 16.00 LYLA Cont.VTI: 2.03 LVOT LVOT Pk Jeremy: 1.48 LVOT Mn Jeremy: 0.96 LVOT VTI: 0.27 LVOT Pk Grad: 9.00 LVOT Mn Grad: 4.00 LVOT Diam: 2.30 LVOT Area: 4.15 Diastolic Function MV Pk E: 0.69 MV Pk A: 1.05 E/A: 0.70 E'Medial: 4.90 E/E' Med: 14.20 E' Laterial: 5.44 E/E' Lat: 12.80 Right Ventricle TAPSE (mm): 20.80 TVS' Jeremy: 18.00 Tricuspid Valve TR Pk Jeremy: 2.47 TR Pk Grad: 24.00 RA Press: 3.00 RVSP: 27.00 Great Vessels Aorta Sinus of Valsalva: 3.30 2.0-3.5 cm Ao Asc: 4.00 2.1-3.4 cm Pulmonary Valve PV Pk Jeremy: 0.94 Peak PV Grad: 4.00 Updated in Other Vendor System with Status of Final Onel Jeffers MD electronically signed on 07/25/2024 7:07:19 PM with status of Final
== END ==
LOC: HO.CARD 09:46
PROVIDERS: PCP Nurse Practitioner Family; Visit Provider Nurse Practitioner Family
DX: I35.0 Nonrheumatic aortic (valve) stenosis (principal)
CPT/HCPCS: 93306

== ENCOUNTER → 2024-07-23 09:52 | Outpatient (BNV) | payer MEDICARE, SELFPAY | PROVIDERS: PCP Nurse Practitioner Family; Visit Provider Internal Medicine Cardiovascular Disease | DX: I35.0 Nonrheumatic aortic (valve) stenosis (principal); I35.8 Other nonrheumatic aortic valve disorders; I34.81 Nonrheumatic mitral (valve) annulus calcification | CPT/HCPCS: 93306 ==

== ENCOUNTER 2024-08-04 06:17 | Outpatient (REF) | payer MEDICARE, SELFPAY ==
[2024-08-04 10:07] LABS: MANUAL DIFF FLAG NO
[2024-08-04 10:16] LABS: Basophils Absolute Auto 0.1 X10*3/uL (0.0-0.2); Basophils Percent Auto 0.7 % (0-2); Eosinophils Absolute Auto 0.2 X10*3/uL (0.0-0.4); Eosinophils Percent Auto 1.5 % (0-4); Hematocrit 46.5 % (37.0-47.0); Hemoglobin 15.9 g/dl (12.0-16.0); Imm Gran Abs Auto 0.04 X10*3/uL (0.00-0.03); Imm Gran Pct Auto 0.4 % (0.0-0.4); Lymphocytes Absolute Auto 3.6 X10*3/uL (1.2-4.9); Lymphocytes Percent Auto 35.7 % (20-40); Mean Corpuscular HGB Conc 34.2 g/dl (31.0-35.0); Mean Corpuscular Hemoglobin 31.8 pg (27.0-33.0); Mean Platelet Volume 9.9 fL (9.4-12.3); Monocytes Absolute Auto 0.8 X10*3/uL (0.1-1.2); Monocytes Percent Auto 7.6 % (2-11); Neutrophils Absolute Auto 5.5 x10*3/uL (2.0-8.3); Neutrophils Percent Auto 54.1 % (45-73); Platelet Count 330 X10*3/uL (160-400); White Blood Count 10.1 X10*3/uL (4.8-10.8)
[2024-08-04 10:50] LABS: Alanine Aminotransferase 21 U/L (0-31); Albumin Level 3.8 g/dL (3.5-5.0); Alkaline Phosphatase 102 U/L (39-117); Anion Gap 15 (12-20); Aspartate Amino Transferase 44 U/L (5-31); Bilirubin Total 0.5 mg/dL (0.0-1.0); Blood Urea Nitrogen 14 mg/dL (9-16); Calcium 9.4 mg/dL (8.4-10.2); Carbon Dioxide 26 mmol/L (22-29); Chloride 104 mmol/L (96-108); Cholesterol 193 mg/dL (<200); Estimated Glomerular Filt Rate > 60; Glucose Fasting 98 mg/dL (60-99); HDL Cholesterol 42 mg/dL (>40); LDL Cholesterol Calculated 114 mg/dL (<100); Potassium 4.1 mmol/L (3.3-5.1); Sodium 141 mmol/L (135-145); Total Protein 6.6 g/dL (6.5-8.0); Triglycerides 188 mg/dL (<150)
[2024-08-04 10:55] LABS: TSH reflex Free T4 2.83 uIU/mL (0.32-4.0)
== END 2024-08-04 06:18 | disposition home or self-care (01) ==
LOC: HO.HMGCLDS 06:17
PROVIDERS: PCP Nurse Practitioner Family; Visit Provider Nurse Practitioner Family
DX: E78.00 Pure hypercholesterolemia, unspecified (principal)
CPT/HCPCS: 36415; 80053; 80061; 84443; 85025

== ENCOUNTER 2024-08-05 06:45 | Outpatient (REF) | payer MEDICARE, SELFPAY ==
[2024-08-05 10:36] LABS: Appearance Urine Turbid; Color Urine Dark Yellow; Glucose Urine UA Negative (Negative); Leukocyte Esterase Urine Trace (Negative); Nitrite Urine Negative (Negative); PH 5.5 (5.0-9.0); Specific Gravity - Urine >= 1.030 (1.005-1.025); UMIC TRIGGER UACC YES; Urine Blood Negative (Negative); Urine Ketones 40 mg/dL (Negative); Urine Protein 30 (1+) mg/dL (Neg-Trace)
[2024-08-05 11:07] LABS: Bacteria Urine None Seen (None Seen); Hyaline Casts Urine 0-2 /LPF (0-2); RBC Urine 0-2 /HPF (0-2); WBC Urine 0-5 /HPF (0-5)
[2024-08-05 11:20] LABS: Calcium Oxalate Crystals Urine Present
== END 2024-08-05 06:46 | disposition home or self-care (01) ==
LOC: HO.HMGCLNP 06:45
PROVIDERS: PCP Nurse Practitioner Family; Visit Provider Nurse Practitioner Family
DX: I10 Essential (primary) hypertension (principal); R21 Rash and other nonspecific skin eruption; E78.00 Pure hypercholesterolemia, unspecified; H93.8X9 Other specified disorders of ear, unspecified ear; Z79.899 Other long term (current) drug therapy
CPT/HCPCS: 81001; 96127; 99212

== ENCOUNTER 2024-08-05 13:14 | Outpatient (AMB) | payer MEDICARE, SELFPAY ==
[2024-08-05 13:23] VITALS: BP 158/86; PULSE 78; O2SAT 98; BMI 26.9
--- NOTE | 2024-08-05 13:23 | A.OFFPC_ITS ---
Vital Signs 3 08/05/24 13:23 Height 5 ft 6 in Weight 166 lb 8 oz BMI 26.9 BP 158/86 H Blood Pressure Location Lt brachial Position Sitting Pulse 78 Pulse Source Pulse Oximeter Pulse Oximetry (%) 98 Oxygen Delivery Method Room Air Intake Visit Reasons: 6 mon f/up Allergies atorvastatin [Lipitor] Allergy (Unknown, Verified 08/05/24 13:25) Hives oxycodone Allergy (Unknown, Verified 08/05/24 13:25) Hallucinations/Sweats, hallucinations, psych simvastatin Allergy (Unknown, Verified 08/05/24 13:25) Hives Medication List - Last Reconciled 08/05/24 by Anamika Casper, BON acetic acid 2% 4 drps otic (ears) TID PRN 5 days ezetimibe 10 mg PO DAILY rosuvastatin 10 mg PO .twice a week 90 days Tobacco use date assessed: 08/05/24 Fall risk assessment: No Falls in past year Last assessed Fall Risk: 08/05/24 Dental Screening Dental Screen Date: 08/05/24 Did you have a dental visit in the last 12 months?: Yes Did you have a dental problem in the last 6 months where you did not have access to dental care?: No Was dental information given to patient?: Patient has dentist HPI HPI Comments 2 History of Present Illness0 Details 74 y/o female patient who presents to e clinic for 6 months f/u. A Patient of Kalyan Arguelles. Pt C/o Itchy, red rash on her Torso for few days now. She noticed the rash after she begun taking Rosuvastatin. Denies any other changes of medications, cosmetic products, Diet or Detergent. She has stopped taking the medication. She is also taking Ezetimibe for Cholesterol control. Pt c/o itchy and dry ears and thinks Acetic Acid drops is the cause. Advised to stop using for few days to see any symptom improvement. [facility] Medical History Anxiety Surgical History History of laparoscopic appendectomy Hx of section [place] teeth extracted Family History Father Cancer Mother Ovarian cancer Social History Housing: House Alcohol intake: current Alcohol intake frequency: does not drink Patient Tobacco Use Status: Current everyday Tobacco user Cigarettes Per Day: 4 Years Smoked: 18 years old e-Cigarette/Vaping Use: Never Used Second Hand Smoke Exposure: No Current occupational status: retired Current occupational exposures/hazards: No Cognitive needs: No Hearing needs: No Vision needs: No Questionnaire PHQ-9 Over the last 2 weeks, how often have you been bothered by any of the following problems? 1. Little interest or pleasure in doing things: not at all 2. Feeling down, depressed, or hopeless: not at all 3. Trouble falling or staying asleep, or sleeping too much: not at all 4. Feeling tired or having little energy: not at all 5. Poor appetite or overeating: not at all 6. Feeling bad about yourself - or that you are a failure or have let yourself or your family down: not at all 7. Trouble concentrating on things, such as reading the newspaper or watching television: not at all 8. Moving or speaking so slowly that other people could have noticed. Or the opposite - being so fidgety or restless that you have been moving around a lot more than usual: not at all 9. Thoughts that you would be better off or of hurting yourself in some way: not at all Total score: 0 Source: Developed by Drs. Darwin Stacy, Mely Gomes, David Perales and colleagues, with an educational maritza from [employer]. Thrive Questionnaire Date Thrive assessed: 01/29/23 AUDIT C Alcohol Use Questionnaire (AUDIT-C) 1. How often do you have a drink containing alcohol?: Never 3. How often do you have six or more drinks on one occasion?: Never Total Score: 0 Score Reviewed/Action Taken: Yes ANGELA-7 AMB Questionnaire ANGELA-7 Date ANGELA - 7 assessed: 08/05/24 Feeling nervous, anxious, or on edge: 0 = Not at all Not being able to stop or control worryin = Not at all Worrying too much about different things: 0 = Not at all Trouble relaxin = Not at all Being so restless that it is hard to sit still: 0 = Not at all Becoming easily annoyed or irritable: 0 = Not at all Feeling afraid as if something awful might happen: 0 = Not at all Total ANGELA-7 score (0-4 normal; 5-9 mild; 10-14 moderate; 15-21 severe): 0 Source: Developed by Drs. Darwin Stacy, Mely Gomes, David Perales and colleagues, with an educational maritza from [employer]. ANGELA-7 Assessment Billing ANGELA-7 Assessment Tool: ANGELA-7 Assessment 07872 Review of Systems Const All systems reviewed & are unremarkable except as noted in HPI and below Physical exam (Primary Care) Vital Signs: Last Vital Signs Pulse 78 08/05/24 13:23 BP 158/86 H 08/05/24 13:23 Pulse Ox 98 08/05/24 13:23 Oxygen Delivery Method Room Air 08/05/24 13:23 BMI result Body Mass Index 26.9 Tobacco/Smoking Status: Tobacco use Status Tobacco use date assessed 08/05/24 08/05/24 13:26 Patient Tobacco Use Status Current everyday Tobacco 08/05/24 13:26 e-Cigarette/Vaping Use Never Used 08/05/24 13:26 PHQ-9: PHQ-9 Score PHQ-9: Total score 0 08/05/24 13:32 Thrive Assessment: Date of Thrive Assessment Date Thrive assessed 01/29/23 08/05/24 13:26 Const General: cooperative and no acute distress Nutritional Appearance: obese Orientation/consciousness: patient oriented x3 Resp Effort & Inspection: normal respiratory effort and able to speak in complete sentences Auscultation: clear to auscultation bilaterally, no crackles, no rales, no rhonchi and no wheezes Cardio Heart sounds: S1 normal heart sound present and S2 normal heart sound present Skin General skin exam: erythema Rashes: rashes noted Full body images: 2 1. Macular papular rash, erythematous and dry back and front torso. 2. Macular papular rash, erythematous and dry back and front torso. Neuro General: patient oriented x3 and moves all extremities Psych Speech and movement: Normal speech and movement present Coding Level of Care Code Est Pt Level 4 (12760) Diagnoses Primary hypertension I10 Hypertension type: primary hypertension Rash and nonspecific skin eruption R21 Additional Codes ANGELA-7 Assessment Billing - ANGELA-7 Assessment Tool: ANGELA-7 Assessment 84152 ([id number]) Time Spent (min) 20 Assessment & Plan Assessment & Plan (1) HTN (hypertension): Code(s): I10 - Essential (primary) hypertension Qualifiers: Hypertension type: primary hypertension Qualified Code(s): I10 - Essential (primary) hypertension Plan: Well controlled on current regiment. (2) Rash and nonspecific skin eruption: Code(s): R21 - Rash and other nonspecific skin eruption Plan: Advised to stop taking Rosuvastatin due to rash and f/u with PCP. Rash should resolve if not RTC Medications: Refilled 2 acetic acid 2% 4 drps otic (ears) TID 5 days PRN 15 mL 1RF ear irritation H93.8X9 - Other specified disorders of ear, unspecified ear On Hold 2 rosuvastatin Hold Comment: PATIENT DEVELOPED RASH ON TORSO. 10 mg PO .twice a week 90 days 26 tabs 2RF E78.00 - Pure hypercholesterolemia, unspecified
== END 2024-08-05 14:25 | disposition home or self-care (01) ==
LOC: HO.HMCC 13:14
PROVIDERS: PCP Nurse Practitioner Family; Visit Provider Nurse Practitioner Family
DX: I10 Essential (primary) hypertension (principal); R21 Rash and other nonspecific skin eruption

== ENCOUNTER 2024-08-07 10:10 | Emergency (ER) | payer MEDICARE, SELFPAY ==
--- NOTE | ~2024-08-07 | CT_ITS ---
EXAMINATION: CT ABDOMEN AND PELVIS WITHOUT CONTRAST CLINICAL INFORMATION: abdominal distension, R/O SBO COMPARISON: CT abdomen/pelvis dated 12/19/2018 TECHNIQUE: Multidetector volumetric imaging was performed from the superior aspect of the liver through the pubic symphysis. Sagittal and coronal reformatted images were obtained on the technologist's workstation. This CT examination was performed using dose optimization techniques as appropriate, variously including the following: *Automated exposure control *Adjustment of mA and/or kV according to patient size (this includes techniques or standardized protocols for targeted exams where dose is matched to indication/reason for exam; i.e. extremities or head) *Use of iterative reconstruction technique DLP: 684 mGy-cm FINDINGS: LUNG BASES: The visualized lung bases are clear. Severe mitral annular calcification. Partially visualized aortic valve calcifications and coronary artery calcifications. LIVER, GALLBLADDER, AND BILIARY TREE: Mild nodular contour of the liver may represent hepatic cirrhosis. No focal hepatic lesion or biliary ductal dilatation is present. The gallbladder is unremarkable with no evidence of radiopaque gallstones, gallbladder wall thickening, or obvious pericholecystic inflammatory changes. PANCREAS: Unremarkable. SPLEEN: Not enlarged. A few sub-5 mm calcifications may represent sequelae of prior granulomatous disease. ADRENAL GLANDS: Unremarkable. KIDNEYS AND URETERS: The kidneys are normal in size, shape, and attenuation. No hydronephrosis, hydroureter, or calculi seen. No perinephric stranding. BLADDER: Decompressed, limiting evaluation. GASTROINTESTINAL TRACT: Small hiatal hernia. Limited evaluation of the bowel on this noncontrast study. Within the limitations of the study, the small and large bowel appear unremarkable. The appendix is unremarkable. ABDOMINAL WALL: Small fat-containing umbilical hernia. PERITONEUM: Large volume ascites is new when compared to 2019. No pneumoperitoneum. LYMPH NODES: Normal. VASCULAR: Atherosclerosis of the aorta and its branches. Brianda aortic aneurysm. PELVIC VISCERA: Unremarkable. OSSEOUS STRUCTURES: Degenerative changes of the visualized spine. CT/CT abdomen pelvis wo IV con IMPRESSION: 1. No evidence of bowel obstruction. 2. Large volume ascites is new when compared to 2019. 3. Mild nodular contour of the liver may represent hepatic cirrhosis. Fleischner guidelines were followed. Electronically signed by: Ailyn Villegas MD 08/07/2024 12:29 PM [facility] [place]
--- NOTE | ~2024-08-07 | US_ITS ---
EXAMINATION: US ABDOMEN LIMITED CLINICAL INFORMATION: New onset ascites. COMPARISON: None available. TECHNIQUE: Real-time imaging of the right upper quadrant abdominal viscera. FINDINGS: LIVER: Nodular contour portal vein is patent. Heterogeneous echotexture without focal lesion. No intrahepatic biliary ductal dilation. FREE FLUID: Moderate US/US abdomen limited IMPRESSION: Nodular morphology of the liver. Moderate abdominopelvic ascites. Electronically signed by: Bello Daigle DO 08/07/2024 03:11 PM [facility]
[2024-08-07 10:13] VITALS: BP 153/79; PULSE 103; RESP 18; TEMP 36.5; O2SAT 98; BMI 27.1
--- NOTE | 2024-08-07 11:06 | ED_ITS ---
HPI - Abdominal Pain General Chief Complaint: Abdominal Pain Stated Complaint: abd pain Time Seen by Provider: 08/07/24 10:55 Source: patient and family ( spouse) Mode of arrival: ambulatory Limitations: no limitations History of Present Illness ED Provider: DR. Crowell HPI narrative: 74-year-old female came in for evaluation of right-sided abdominal pain and feeling bloated and distended patient's symptoms started 3 weeks ago but for the past few days the bloating is worse which is associated with nausea and decreased p.o. intake, patient had a small bowel movement this morning, reported passing flatus yesterday, no dysuria, no frequency urination, no hematuria, no vaginal discharge, No SOB, no coughing. History appendectomy 5 years ago, 3 C sections. no history of alcohol use. Related Data Previous Rx's ?Medication ?Instructions ?Recorded ezetimibe 10 mg tablet 10 mg PO DAILY #90 tabs 04/29/24 rosuvastatin 10 mg tablet 10 mg PO .twice a week 90 days #26 05/20/24 tabs acetic acid 2 % ear solution 4 drp otic (ears) TID PRN ear 08/05/24 irritation 5 days #15 mL ondansetron 4 mg disintegrating 4 mg PO Q8-12H PRN nausea and 08/07/24 tablet vomiting #7 tabs Allergies Allergy/AdvReac Type Severity Reaction Status Date / Time atorvastatin [Lipitor] Allergy Unknown Hives Verified 08/07/24 10:15 oxycodone Allergy Unknown Hallucinations/Sweats, Verified 08/07/24 10:15 hallucinations, psych simvastatin Allergy Unknown Hives Verified 08/07/24 10:15 Review of Systems Review of Systems All other systems are reviewed and are negative Constitutional: Reports as per HPI and Reports no additional constitutional complaints Eyes: Reports as per HPI and Reports no additional eye complaints Reports system reviewed and no additional complaints, except as documented Cardiovascular: Reports as per HPI and Reports no additional cardiovascular complaints Respiratory: Reports as per HPI and Reports no additional respiratory complaints Gastrointestinal: Reports as per HPI and Reports no additional gastrointestinal complaints Genitourinary: Reports no additional female genitourinary complaints Musculoskeletal: Reports no additional musculoskeletal complaints Skin/Breast: Reports system reviewed and no additional complaints, except as docu Psychiatric: Reports no additional psychiatric complaints Endocrine: Reports no additional endocrine complaints Hematologic/Lymphatic: Reports no additional hematologic/lymphatic complaints Allergic/Immunologic: Reports no additional allergic/immunologic complaints Reports system reviewed and no additional complaints, except as documented and Reports Abnormal speech present [facility] Past Medical History Medical History Anxiety Surgical History History of laparoscopic appendectomy Hx of section [place] teeth extracted Family History Family History Father Cancer Mother Ovarian cancer Social History Social History Housing: House Alcohol intake: current Alcohol intake frequency: does not drink Patient Tobacco Use Status: Current everyday Tobacco user Cigarettes Per Day: 4 Years Smoked: 18 years old e-Cigarette/Vaping Use: Never Used Second Hand Smoke Exposure: No Advance Directives: No Advance Directives Information Provided: No Current occupational status: retired Current occupational exposures/hazards: No Cognitive needs: No Hearing needs: No Vision needs: No Physical Exam ED Vital Signs: Vital Signs - 24 hr 08/07/24 10:13 Temperature 97.7 F Pulse Rate 103 H Respiratory Rate 18 Blood Pressure 153/79 H Pulse Oximetry 98 Oxygen Delivery Method Room Air BMI result Body Mass Index 27.1 Vital signs have been reviewed and appear to be correct. Blood pressure elevated. Heart rate normal. Respiratory rate normal. Temperature normal. Oxygen saturation normal. Appearance: Alert. Oriented X3. No acute distress. Head: Normal external exam. Normocephalic. Atraumatic. No [place] signs noted. No raccoon eyes noted Eyes: PERRLA. EOMI. Conjunctiva and sclera normal. Eyelids normal. ENT: TM's Normal. Pharynx normal. Uvula midline. Moist mucous membranes. No trismus noted. No drooling noted. No muffled voice noted. Neck: Normal inspection. Neck supple. FROM. No adenopathy. Thyroid Normal. No meningeal signs. No neck mass noted. CVS: Normal heart rate and rhythm. Heart sound normal. No murmurs noted. Pulses normal throughout. Respiratory: No respiratory distress. Painless inspiration. Breath sounds normal. No wheezes/rales/rhonchi noted. Chest nontender. No accessory muscle usage noted or decreased air movement noted. Abdomen: Soft , slightly distended, mild tenderness to the right side of the abdomen.. Bowel sounds normal in all 4 quadrants. No distention noted. No organomegaly noted. No visible injury noted. Back: No CVA tenderness. Full range of motion noted. Skin: Skin warm and dry. Normal skin color. Normal skin turgor. No rashes/lesions/lacerations noted. Extremities: No lower extremity edema. Extremities exhibit normal range of motion. Extremities nontender. Neuro: Oriented X 3. Cranial nerve exam: II-XII are grossly intact No motor deficit. No sensory deficit. Reflexes normal. Course Reevaluation(s) Reevaluation #1: 74-year-old female with abdominal distension, CT is consistent with ascites and liver cirrhosis, no history of alcohol abuse, patient has no shortness of breath, no indication for abdominal paracentesis at this point, structured to follow-up with Dr. Bena her GI doctor and PCP. Time: 12:41 Reevaluation #2: patient had recent evaluation by Ob for right ovarian biopsy and fluid in the pelvis patient was told by the Ob everything was okay patient was instructed to follow-up with OB, GI, and PCP. Time: 15:31 Medical Decision Making Differential Diagnosis Differential Diagnoses: The differential diagnosis associated with the presentation includes ( Small-bowel obstruction ascites, liver cirrhosis, alcohol abuse, electrolyte derangement, severe anemia.) Admission/Observation Consideration of admission/observation: Escalation of care including admission/observation considered Lab Data MDM Lab Attestation statement: I reviewed the patient's lab results. 08/07/24 11:22 08/07/24 11:48 Labs: Lab Results 08/07/24 08/07/24 08/07/24 Range/Units 10:56 11:22 11:48 WBC 10.5 (4.8-10.8) X10*3/uL RBC 4.77 (4.20-5.50) X10*6/uL Hgb 15.1 (12.0-16.0) g/dl Hct 43.7 (37.0-47.0) % MCV 91.6 (80.0-98.0) fL MCH 31.7 (27.0-33.0) pg MCHC 34.6 (31.0-35.0) g/dl RDW 12.7 (11.0-16.0) % Plt Count 309 (160-400) X10*3/uL MPV 9.9 (9.4-12.3) fL Immature Gran % (Auto) 0.2 (0.0-0.4) % Neut % (Auto) 72.9 (45-73) % Lymph % (Auto) 20.6 (20-40) % [place] % (Auto) 5.5 (2-11) % Eos % (Auto) 0.3 (0-4) % Baso % (Auto) 0.5 (0-2) % Lymph # (Auto) 2.2 (1.2-4.9) X10*3/uL [place] # (Auto) 0.6 (0.1-1.2) X10*3/uL Eos # (Auto) 0.0 (0.0-0.4) X10*3/uL Baso # (Auto) 0.1 (0.0-0.2) X10*3/uL Abs Immat Gran (auto) 0.02 (0.00-0.03) X10*3/uL Absolute Neuts (auto) 7.7 (2.0-8.3) x10*3/uL Absolute Nucleated RBC 0.000 (0.0-0.012) X10*3/uL Nucleated RBC % (auto) 0.0 (0.0-0.2) /100WBC Sodium 143 (135-145) mmol/L Potassium 4.8 (3.3-5.1) mmol/L Chloride 108 (96-108) mmol/L Carbon Dioxide 24 (22-29) mmol/L Anion Gap 16 (12-20) BUN 13 (9-16) mg/dL Creatinine 0.80 (0.5-1.4) mg/dL Estim Creat Clear Calc 66.2 Estimated GFR > 60 Random Glucose 101 (60-115) mg/dL Calcium 9.2 (8.4-10.2) mg/dL Magnesium 2.3 (1.6-2.6) mg/dL Total Bilirubin 0.2 (0.0-1.0) mg/dL AST 44 H (5-31) U/L ALT 16 (0-31) U/L Alkaline Phosphatase 93 (39-117) U/L Total Protein 6.2 L (6.5-8.0) g/dL Albumin 3.7 (3.5-5.0) g/dL Lipase 17 (8-78) U/L Urine Color Dark Yellow Urine Appearance Clear Urine pH 5.5 (5.0-9.0) Ur Specific [place] >= 1.030 H (1.005-1.025) Urine Protein 30 (1+) H (Neg-Trace) mg/dL Urine Glucose (UA) Negative (Negative) mg/dL Urine Ketones 40 (Negative) mg/dL Urine Blood Negative (Negative) Urine Nitrite Negative (Negative) Ur Leukocyte Esterase Trace H (Negative) Urine RBC 0-2 (0-2) /HPF Urine WBC 0-5 (0-5) /HPF Ur Squamous Epith Cells 11-20 (0-2) /HPF Urine Bacteria None Seen (None Seen) Hyaline Casts 0-2 (0-2) /LPF Independent Interpretation I performed an independent interpretation of an: Ultrasound (Nodular morphology of the liver. Moderate abdominopelvic ascites. ) and CT Scan ( abdomen pelvis;1. No evidence of bowel obstruction. 2. Large volume ascites is new when compared to 2019. 3. Mild nodular contour of the liver may represent hepatic cirrhosis. ) Radiology Impression Discussion of test interpretation with radiology: I have reviewed the radiologist's reading. Medications Administered Discontinued Medications Generic Name Dose Route Start Last Admin Trade Name Freq PRN Reason Stop Dose Admin Ondansetron HCl 4 mg 08/07/24 12:47 08/07/24 14:06 Ondansetron Odt 4 Mg Tab.Jarretdis TRANSLINGU 08/07/24 12:48 4 mg ONCE ONE Administration Discharge Plan Discharge Clinical Impression: Cirrhosis of liver, Ascites Patient Disposition: Still a Patient Instructions: Ascites (ED) Prescriptions: New ondansetron 4 mg tablet,disintegrating 4 mg PO Q8-12H PRN (Reason: nausea and vomiting) Qty: 7 0RF No Action ezetimibe 10 mg tablet 10 mg PO DAILY Qty: 90 1RF rosuvastatin 10 mg tablet 10 mg PO .twice a week 90 Days Qty: 26 2RF acetic acid 2 % solution 4 drp otic (ears) TID PRN (Reason: ear irritation) 5 Days Qty: 15 1RF Print Language: Mohawk
[2024-08-07 11:12] LABS: Appearance Urine Clear; Color Urine Dark Yellow; Glucose Urine UA Negative (Negative); Leukocyte Esterase Urine Trace (Negative); Nitrite Urine Negative (Negative); PH 5.5 (5.0-9.0); Specific Gravity - Urine >= 1.030 (1.005-1.025); UMIC TRIGGER UACC YES; Urine Blood Negative (Negative); Urine Ketones 40 mg/dL (Negative); Urine Protein 30 (1+) mg/dL (Neg-Trace)
--- NOTE | 2024-08-07 11:12 | PC.NURSE ---
Informed by pattern hand that she is unable to draw labs d/t pt. being difficult stick. This RN went to draw pt.- pt. is in CT at this time and not in room. Will draw labs when pt. is back in her room.
[2024-08-07 11:27] LABS: MANUAL DIFF FLAG NO
[2024-08-07 11:29] LABS: Bacteria Urine None Seen (None Seen); Hyaline Casts Urine 0-2 /LPF (0-2); RBC Urine 0-2 /HPF (0-2); WBC Urine 0-5 /HPF (0-5)
[2024-08-07 11:32] LABS: Basophils Absolute Auto 0.1 X10*3/uL (0.0-0.2); Basophils Percent Auto 0.5 % (0-2); Eosinophils Percent Auto 0.3 % (0-4); Hematocrit 43.7 % (37.0-47.0); Hemoglobin 15.1 g/dl (12.0-16.0); Imm Gran Abs Auto 0.02 X10*3/uL (0.00-0.03); Imm Gran Pct Auto 0.2 % (0.0-0.4); Lymphocytes Absolute Auto 2.2 X10*3/uL (1.2-4.9); Lymphocytes Percent Auto 20.6 % (20-40); Mean Corpuscular HGB Conc 34.6 g/dl (31.0-35.0); Mean Corpuscular Hemoglobin 31.7 pg (27.0-33.0); Mean Corpuscular Volume 91.6 fL (80.0-98.0); Mean Platelet Volume 9.9 fL (9.4-12.3); Monocytes Absolute Auto 0.6 X10*3/uL (0.1-1.2); Monocytes Percent Auto 5.5 % (2-11); Neutrophils Absolute Auto 7.7 x10*3/uL (2.0-8.3); Neutrophils Percent Auto 72.9 % (45-73); Platelet Count 309 X10*3/uL (160-400); Red Blood Count 4.77 X10*6/uL (4.20-5.50); Red Cell Distribution Width 12.7 % (11.0-16.0); White Blood Count 10.5 X10*3/uL (4.8-10.8)
[2024-08-07 12:15] LABS: Alanine Aminotransferase 16 U/L (0-31); Albumin Level 3.7 g/dL (3.5-5.0); Alkaline Phosphatase 93 U/L (39-117); Anion Gap 16 (12-20); Aspartate Amino Transferase 44 U/L (5-31); Bilirubin Total 0.2 mg/dL (0.0-1.0); Blood Urea Nitrogen 13 mg/dL (9-16); Calcium 9.2 mg/dL (8.4-10.2); Carbon Dioxide 24 mmol/L (22-29); Chloride 108 mmol/L (96-108); Creatinine Clr Calc Pharmacy 66.2; Estimated Glomerular Filt Rate > 60; Glucose Random 101 mg/dL (60-115); Lipase 17 U/L (8-78); Magnesium 2.3 mg/dL (1.6-2.6); Potassium 4.8 mmol/L (3.3-5.1); Sodium 143 mmol/L (135-145); Total Protein 6.2 g/dL (6.5-8.0)
[2024-08-07] MEDS: Ondansetron ODT 4 MG TAB.RAPDIS TRANSLINGU (14:06)
[2024-08-07 15:33] VITALS: BP 144/86; PULSE 56; RESP 16; TEMP 36.6; O2SAT 96
== END 2024-08-07 15:34 | disposition home or self-care (01) ==
PROVIDERS: Emergency Provider Emergency Medicine; PCP Nurse Practitioner Family
DX: K74.60 Unspecified cirrhosis of liver (principal); R18.8 Other ascites; E78.00 Pure hypercholesterolemia, unspecified; F17.210 Nicotine dependence, cigarettes, uncomplicated; Z79.02 Long term (current) use of antithrombotics/antiplatelets
CPT/HCPCS: 36415; 74176; 76705; 80053; 81001; 83690; 83735; 85025; 99282; 99284

== ENCOUNTER 2024-08-10 08:56 | Outpatient (REF) | payer MEDICARE, SELFPAY ==
[2024-08-10 13:30] LABS: Appearance Urine Turbid; Color Urine Dark Yellow; Glucose Urine UA Negative (Negative); Leukocyte Esterase Urine Trace (Negative); Nitrite Urine Negative (Negative); PH 5.5 (5.0-9.0); Specific Gravity - Urine >= 1.030 (1.005-1.025); UMIC TRIGGER UACC YES; Urine Blood Negative (Negative); Urine Ketones 15 mg/dL (Negative); Urine Protein 30 (1+) mg/dL (Neg-Trace)
[2024-08-10 13:53] LABS: Bacteria Urine None Seen (None Seen); Calcium Oxalate Crystals Urine Present; WBC Urine 0-5 /HPF (0-5)
== END 2024-08-10 08:57 | disposition home or self-care (01) ==
LOC: HO.HMGCLDS 08:56
PROVIDERS: PCP Nurse Practitioner Family; Visit Provider Nurse Practitioner Family
DX: R80.9 Proteinuria, unspecified (principal)
CPT/HCPCS: 81001

== ENCOUNTER 2024-08-11 09:17 | Emergency (ER) | payer MEDICARE, SELFPAY ==
[2024-08-11] VITALS (7 sets, daily range): BP systolic 103–151; BP diastolic 48–88; PULSE 78–98; RESP 15–18; TEMP 36.1–36.9; O2SAT 94–97; BMI 27.5
[2024-08-11 10:00] LABS: MANUAL DIFF FLAG NO
[2024-08-11 10:02] LABS: Basophils Absolute Auto 0.1 X10*3/uL (0.0-0.2); Basophils Percent Auto 0.5 % (0-2); Eosinophils Percent Auto 0.2 % (0-4); Hematocrit 44.3 % (37.0-47.0); Hemoglobin 15.4 g/dl (12.0-16.0); Imm Gran Abs Auto 0.03 X10*3/uL (0.00-0.03); Imm Gran Pct Auto 0.3 % (0.0-0.4); Lymphocytes Absolute Auto 1.9 X10*3/uL (1.2-4.9); Lymphocytes Percent Auto 18.2 % (20-40); Mean Corpuscular HGB Conc 34.8 g/dl (31.0-35.0); Mean Corpuscular Hemoglobin 31.9 pg (27.0-33.0); Mean Corpuscular Volume 91.7 fL (80.0-98.0); Mean Platelet Volume 9.4 fL (9.4-12.3); Monocytes Absolute Auto 0.7 X10*3/uL (0.1-1.2); Neutrophils Absolute Auto 7.5 x10*3/uL (2.0-8.3); Neutrophils Percent Auto 73.8 % (45-73); Platelet Count 302 X10*3/uL (160-400); Red Blood Count 4.83 X10*6/uL (4.20-5.50); Red Cell Distribution Width 12.6 % (11.0-16.0); White Blood Count 10.2 X10*3/uL (4.8-10.8)
[2024-08-11 10:08] LABS: INTERNATIONAL NORM RATIO 1.1 (0.9-1.1); Prothrombin Time 12.6 SEC (10.9-12.4)
[2024-08-11 10:21] LABS: Alanine Aminotransferase 18 U/L (0-31); Albumin Level 3.7 g/dL (3.5-5.0); Alkaline Phosphatase 96 U/L (39-117); Anion Gap 15 (12-20); Aspartate Amino Transferase 46 U/L (5-31); Bilirubin Direct 0.2 mg/dL (0.0-0.5); Blood Urea Nitrogen 11 mg/dL (9-16); Calcium 9.4 mg/dL (8.4-10.2); Carbon Dioxide 23 mmol/L (22-29); Chloride 103 mmol/L (96-108); Creatinine Clr Calc Pharmacy 71.1; Estimated Glomerular Filt Rate > 60; Glucose Random 115 mg/dL (60-115); Lipase 21 U/L (8-78); Potassium 4.1 mmol/L (3.3-5.1); Sodium 137 mmol/L (135-145); Total Protein 6.4 g/dL (6.5-8.0)
[2024-08-11 10:36] LABS: Bilirubin Total 0.3 mg/dL (0.0-1.0)
--- NOTE | 2024-08-11 16:32 | ED.GENADULT ---
HPI - General Adult General Chief complaint: Abdominal Pain Stated complaint: Fluid around liver, seen recently Time Seen by Provider: 08/11/24 16:04 Source: patient History of Present Illness ED Provider: Francheska HPI narrative: 74-year-old female with past medical history of appendectomy, dyslipidemia, anxiety presenting for abdominal distention. Patient states that she has been experiencing weeks of worsening abdominal distention. She was seen in this ED a few days ago and had a CT scan that showed new cirrhosis/ascites. She was discharged with instructions to follow up with her outpatient GI doctor however she presents today due to worsening distention and pain. She denies fevers, chills, nausea, vomiting. Related Data Previous Rx's ?Medication ?Instructions ?Recorded ezetimibe 10 mg tablet 10 mg PO DAILY #90 tabs 04/29/24 rosuvastatin 10 mg tablet 10 mg PO .twice a week 90 days #26 05/20/24 tabs acetic acid 2 % ear solution 4 drp otic (ears) TID PRN ear 08/05/24 irritation 5 days #15 mL ondansetron 4 mg disintegrating 4 mg PO Q8-12H PRN nausea and 08/07/24 tablet vomiting #7 tabs Allergies Allergy/AdvReac Type Severity Reaction Status Date / Time atorvastatin [Lipitor] Allergy Unknown Hives Verified 08/11/24 09:38 oxycodone Allergy Unknown Hallucinations/Sweats, Verified 08/11/24 09:38 hallucinations, psych simvastatin Allergy Unknown Hives Verified 08/11/24 09:38 Review of Systems Review of Systems: Patient endorses abdominal distention and pain She denies nausea, vomiting, fevers, chills, chest pain, shortness of breath, urinary symptoms, diarrhea Yes all other systems are reviewed and are negative [facility] Past Medical History Attestation statement: The following information was validated with the patient. [facility] Narrative: Dyslipidemia Source: old records reviewed Medical History Anxiety Surgical History History of laparoscopic appendectomy Hx of section [place] teeth extracted Family History Family History Father Cancer Mother Ovarian cancer Social History Social History Housing: House Alcohol intake: current Alcohol intake frequency: does not drink Patient Tobacco Use Status: Current everyday Tobacco user Cigarettes Per Day: 4 Years Smoked: 18 years old Smoked in Last 30 Days: Yes e-Cigarette/Vaping Use: Never Used Second Hand Smoke Exposure: No Use of substances other than those prescribed or required for medical reasons: No Advance Directives: No Advance Directives Information Provided: Yes Current occupational status: retired Current occupational exposures/hazards: No Cognitive needs: No Hearing needs: No Vision needs: No Physical Exam ED Vital Signs: Vital Signs - 24 hr 08/11/24 09:35 08/11/24 15:49 08/11/24 18:20 Temperature 97.9 F 98.3 F 97 F Pulse Rate 98 94 92 Respiratory Rate 18 16 16 Blood Pressure 151/77 H 130/61 151/88 H Pulse Oximetry 96 95 94 Oxygen Delivery Method Room Air Room Air Room Air 08/11/24 19:30 08/11/24 20:21 08/11/24 20:30 Temperature Pulse Rate 83 78 88 Respiratory Rate 15 16 Blood Pressure 132/60 103/48 L 121/71 Pulse Oximetry 97 97 Oxygen Delivery Method Room Air Room Air BMI result Body Mass Index 27.5 Well-appearing at bedside in no acute distress Lungs clear to auscultation bilaterally; normal S1-S2 regular rate and rhythm Abdomen is distended, rigid with mild diffuse tenderness however non peritoneal and no guarding or rebound tenderness appreciated Medications Administered Discontinued Medications Generic Name Dose Route Start Last Admin Trade Name Freq PRN Reason Stop Dose Admin Lidocaine HCl 10 ml 08/11/24 18:45 08/11/24 18:58 Lidocaine Hcl 1 % 20 Ml Vial INFILTRATI 08/11/24 18:46 10 ml ONCE ONE Administration Medical Decision Making Medical Decision Making MDM Narrative: 74-year-old female presents with abdominal distention and recently found to have new cirrhosis/ascites. In addition to known cirrhosis/ascites I am concerned for malignancy Minimal concern for SBP Lab work was ordered in triage Labs notable for stable H&H, stable platelets, normal white count, LFTs within normal limits 6:40pm consent obtained from patient for paracentesis and approximately 1.5L of serous fluid removed and tubes sent for testing Patient reports significant improvement in abdominal discomfort; patient's blood pressure normotensive; patient requesting to be discharged I added hepatitis panel to pt's ordered prior to discharge I gave patient follow up instructions, home care instructions and return precautions Differential Diagnosis Differential Diagnoses: The differential diagnosis associated with the presentation includes Cirrhosis, ascites, malignancy Lab Data 08/11/24 09:57 08/11/24 09:57 Labs: Lab Results 08/11/24 08/11/24 Range/Units 09:57 17:04 WBC 10.2 (4.8-10.8) X10*3/uL RBC 4.83 (4.20-5.50) X10*6/uL Hgb 15.4 (12.0-16.0) g/dl Hct 44.3 (37.0-47.0) % MCV 91.7 (80.0-98.0) fL MCH 31.9 (27.0-33.0) pg MCHC 34.8 (31.0-35.0) g/dl RDW 12.6 (11.0-16.0) % Plt Count 302 (160-400) X10*3/uL MPV 9.4 (9.4-12.3) fL Immature Gran % (Auto) 0.3 (0.0-0.4) % Neut % (Auto) 73.8 H (45-73) % Lymph % (Auto) 18.2 L (20-40) % [place] % (Auto) 7.0 (2-11) % Eos % (Auto) 0.2 (0-4) % Baso % (Auto) 0.5 (0-2) % Lymph # (Auto) 1.9 (1.2-4.9) X10*3/uL [place] # (Auto) 0.7 (0.1-1.2) X10*3/uL Eos # (Auto) 0.0 (0.0-0.4) X10*3/uL Baso # (Auto) 0.1 (0.0-0.2) X10*3/uL Abs Immat Gran (auto) 0.03 (0.00-0.03) X10*3/uL Absolute Neuts (auto) 7.5 (2.0-8.3) x10*3/uL Absolute Nucleated RBC 0.000 (0.0-0.012) X10*3/uL Nucleated RBC % (auto) 0.0 (0.0-0.2) /100WBC PT 12.6 H (10.9-12.4) SEC INR 1.1 (0.9-1.1) APTT 30.8 (26.0-36.8) SEC Sodium 137 (135-145) mmol/L Potassium 4.1 (3.3-5.1) mmol/L Chloride 103 (96-108) mmol/L Carbon Dioxide 23 (22-29) mmol/L Anion Gap 15 (12-20) BUN 11 (9-16) mg/dL Creatinine 0.75 (0.5-1.4) mg/dL Estim Creat Clear Calc 71.1 Estimated GFR > 60 Random Glucose 115 (60-115) mg/dL Calcium 9.4 (8.4-10.2) mg/dL Total Bilirubin 0.3 (0.0-1.0) mg/dL Direct Bilirubin 0.2 (0.0-0.5) mg/dL AST 46 H (5-31) U/L ALT 18 (0-31) U/L Alkaline Phosphatase 96 (39-117) U/L Total Protein 6.4 L (6.5-8.0) g/dL Albumin 3.7 (3.5-5.0) g/dL Lipase 21 (8-78) U/L Discharge Plan Discharge Clinical Impression: Ascites Qualifiers: Ascites type: other type Qualified Code(s): R18.8 - Other ascites Abdominal pain Qualifiers: Abdominal location: unspecified location Qualified Code(s): R10.9 - Unspecified abdominal pain Patient Disposition: Home, Self-Care Additional Instructions: Please follow up with your outpatient providers in the next 24-48 hours for re-evaluation. If you develop any new or worsening symptoms please return to the emergency department. If you notice excessive drainage from your paracentesis site that does not stop please return to the emergency department. Prescriptions: No Action ezetimibe 10 mg tablet 10 mg PO DAILY Qty: 90 1RF rosuvastatin 10 mg tablet 10 mg PO .twice a week 90 Days Qty: 26 2RF ondansetron 4 mg tablet,disintegrating 4 mg PO Q8-12H PRN (Reason: nausea and vomiting) Qty: 7 0RF acetic acid 2 % solution 4 drp otic (ears) TID PRN (Reason: ear irritation) 5 Days Qty: 15 1RF Print Language: Ugandan
[2024-08-11 17:37] LABS: Partial Thromboplastin Time 30.8 SEC (26.0-36.8)
--- NOTE | 2024-08-11 18:32 | PC.NURSE ---
Call placed to pharmacy for STAT delivery of lidocaine for provider procedure. Awaiting delivery, provider aware or delay.
[2024-08-11] MEDS: Lidocaine HCl 1 % 20 ML VIAL 10 ML INFILTRATI (18:58)
[2024-08-11 19:50] LABS: MN% 91.9 %; PMN% 8.1 %; RBC Peritoneal Fluid 0.004 X10*6/uL; WBC Peritoneal Fluid 0.955 X10*3/uL
[2024-08-11 22:37] LABS: Lymphocyte Peritoneal Fl 6 %; Monocytes Peritoneal Fl 6 %; Neutrophils Peritoneal Fluid 3 %; Other Peritioneal Fl 85 %
[2024-08-11 22:38] LABS: BF Shift QC OK YES
[2024-08-12 07:43] LABS: Albumin Peritoneal Fluid 2.7; pH Peritoneal Fluid 7.33
[2024-08-12 07:44] LABS: Glucose Peritoneal Fluid 76; LDH Peritoneal Fluid 347; Total Protein Peritoneal Fluid 4.3
[2024-08-12 07:45] LABS: Amylase Peritoneal Fluid 37
[2024-08-12 08:18] LABS: HBS Num1 0.22 mIU/mL (0-7.99); HBsAGNum1 0.32 S/CO (0.00-0.99); Hepatitis A Antibody IgM 0.15 Index (0-0.79); Hepatitis B Core Antibody Nonreactive (Nonreactive); Hepatitis B Surface Antigen Negative (Negative); ~HepC Num1 0.14 S/CO (0.00-0.79); ~Hepatitis A Antibody IgM Nonreactive (Nonreactive); ~Hepatitis B Surface Antibody NONREACTIVE (Nonreactive); ~Hepatitis C Antibody Nonreactive (Nonreactive)
== END 2024-08-11 21:22 | disposition home or self-care (01) ==
PROVIDERS: Emergency Provider Student in an Organized Health Care Education/Training Program; PCP Nurse Practitioner Family
DX: R18.8 Other ascites (principal); R10.2 Pelvic and perineal pain; R14.0 Abdominal distension (gaseous); Z79.899 Other long term (current) drug therapy; F17.210 Nicotine dependence, cigarettes, uncomplicated
CPT/HCPCS: 36415; 80048; 80076; 82042; 82150; 82945; 83615; 83690; 83986; 84157; 85025; 85610; 85730; 86704; 86706; 86709; 86803; 87070; 87073; 87116; 87205; 87206; 87340; 88112; 88305; 88341; 88342; 89051; 99284; J2003

== ENCOUNTER 2024-08-18 09:23 | Outpatient (REF) | payer MEDICARE, SELFPAY ==
--- NOTE | ~2024-08-18 | US_ITS ---
EXAMINATION: US PELVIC, LIMITED CLINICAL INFORMATION: Left lower quadrant mass. Paracentesis in this region. Firm, red and tender. Evaluate for hematoma. COMPARISON: Most recent abdominal ultrasound dated 08/07/2024. TECHNIQUE: Grayscale, Doppler, and cine images were obtained of the left lower quadrant in the region of the patient's findings. FINDINGS: Skin thickening with subcutaneous stranding and heterogeneity in the left lower quadrant at the region of the patient's findings. Ill-defined, hypoechoic area measuring up to 12.2 cm in greatest dimension. Findings likely represent cellulitis with phlegmonous change. No organized fluid collection. US/US pelvic limited IMPRESSION: Skin thickening with subcutaneous stranding and heterogeneity in the region of the patient's findings. Findings likely represent cellulitis with phlegmonous change. No organized fluid collection. Electronically signed by: Reese Vernon MD 08/18/2024 11:10 AM [facility] [place]
[2024-08-18 13:11] LABS: MANUAL DIFF FLAG NO
[2024-08-18 13:33] LABS: Basophils Absolute Auto 0.1 X10*3/uL (0.0-0.2); Basophils Percent Auto 0.6 % (0-2); Eosinophils Percent Auto 0.5 % (0-4); Hematocrit 42.3 % (37.0-47.0); Hemoglobin 14.5 g/dl (12.0-16.0); Imm Gran Abs Auto 0.02 X10*3/uL (0.00-0.03); Imm Gran Pct Auto 0.2 % (0.0-0.4); Lymphocytes Percent Auto 23.9 % (20-40); Mean Corpuscular HGB Conc 34.3 g/dl (31.0-35.0); Mean Corpuscular Hemoglobin 31.2 pg (27.0-33.0); Mean Platelet Volume 9.9 fL (9.4-12.3); Monocytes Absolute Auto 0.7 X10*3/uL (0.1-1.2); Monocytes Percent Auto 7.7 % (2-11); Neutrophils Absolute Auto 5.7 x10*3/uL (2.0-8.3); Neutrophils Percent Auto 67.1 % (45-73); Platelet Count 319 X10*3/uL (160-400); Red Blood Count 4.65 X10*6/uL (4.20-5.50); Red Cell Distribution Width 12.6 % (11.0-16.0); White Blood Count 8.6 X10*3/uL (4.8-10.8)
[2024-08-18 13:52] LABS: Alanine Aminotransferase 19 U/L (0-31); Albumin Level 3.7 g/dL (3.5-5.0); Alkaline Phosphatase 92 U/L (39-117); Anion Gap 14 (12-20); Aspartate Amino Transferase 47 U/L (5-31); Bilirubin Direct 0.1 mg/dL (0.0-0.5); Bilirubin Total 0.4 mg/dL (0.0-1.0); Blood Urea Nitrogen 10 mg/dL (9-16); Calcium 8.8 mg/dL (8.4-10.2); Carbon Dioxide 26 mmol/L (22-29); Chloride 102 mmol/L (96-108); Estimated Glomerular Filt Rate > 60; Glucose Random 104 mg/dL (60-115); Iron 69 mcg/dL (30-160); Percent Iron Saturation 28 % (15-50); Potassium 3.4 mmol/L (3.3-5.1); Sodium 139 mmol/L (135-145); Total Iron Binding Capacity 243 mcg/dL (228-428); Total Protein 6.6 g/dL (6.5-8.0); Unsaturated Iron Binding 174 ug/dL
[2024-08-18 14:08] LABS: Ferritin 247 ng/mL (10-250)
[2024-08-23 14:24] LABS: Anti Nuclear Antibody Screen NEGATIVE (NEGATIVE)
[2024-08-24 13:09] LABS: Mitochondrial Antibodies NEGATIVE (NEGATIVE)
[2024-08-25 15:58] LABS: FIB-ALT 16 U/L (6-29); FIB-Alpha-2-Macroglobulin 107 mg/dL (106-279); FIB-Apolipoprotein A1 124 mg/dL (101-198); FIB-GGT 15 U/L (3-65); FIB-Haptoglobin 402 mg/dL (43-212); FIB-Total Bilirubin 0.4 mg/dL (0.2-1.2); Liver Fibrosis Score 0.05; Liver Fibrosis Stage F0; Nec Inflam Act Grade A0; Nec Inflam Act Score 0.04; Reference ID 5223484
[2024-08-25 23:33] LABS: Smooth Muscle Antibody <20 U (<20)
== END 2024-08-18 09:24 | disposition home or self-care (01) ==
LOC: HO.HMGCX 09:23
PROVIDERS: PCP Nurse Practitioner Family; Visit Provider Internal Medicine Gastroenterology
DX: R18.8 Other ascites (principal); K74.69 Other cirrhosis of liver; Z12.11 Encounter for screening for malignant neoplasm of colon
CPT/HCPCS: 36415; 76857; 80048; 80076; 81596; 82728; 83540; 85025; 86015; 86038; 86381

== ENCOUNTER 2024-08-23 15:20 | Outpatient (AMB) | payer MEDICARE, SELFPAY ==
[2024-08-23 15:44] VITALS: BP 136/92; PULSE 89; O2SAT 97; BMI 25.2
--- NOTE | 2024-08-23 15:44 | A.OFFPC_ITS ---
Vital Signs 08/23/24 15:44 Height 5 ft 6 in Weight 156 lb 4 oz BMI 25.2 BP 136/92 H Blood Pressure Location Lt brachial Position Sitting Pulse 89 Pulse Source Pulse Oximeter Pulse Oximetry (%) 97 Oxygen Delivery Method Room Air Intake Visit Reasons: HDF Allergies atorvastatin [Lipitor] Allergy (Unknown, Verified 08/23/24 16:51) Hives oxycodone Allergy (Unknown, Verified 08/23/24 16:51) Hallucinations/Sweats, hallucinations, psych simvastatin Allergy (Unknown, Verified 08/23/24 16:51) Hives Medication List - Last Reconciled 08/23/24 by Kalyan Arguelles, [employer]- acetic acid 2% 4 drps otic (ears) TID PRN 5 days cephalexin 500 mg PO Q8H furosemide 40 mg PO DAILY spironolactone 100 mg PO DAILY Tobacco use date assessed: 08/23/24 Fall risk assessment: No Falls in past year Last assessed Fall Risk: 08/23/24 Dental Screening Dental Screen Date: 08/23/24 Did you have a dental visit in the last 12 months?: Yes Did you have a dental problem in the last 6 months where you did not have access to dental care?: No Was dental information given to patient?: Patient has dentist HPI HDF HPI Details History of Present Illness The patient is a 74-year-old female (+ smoker) presenting for follow up for ascites. Previously, a CT scan had identified the presence of ascites and cirrhosis unrelated to alcohol consumption. An initial fluid collection from the ascites performed on 08/11 was reported as negative for cancer cells (according to what pt heard by her GI last week). 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 The patient has been under the care of Dr. Bean (GI) and Dr. Gallegos (HUMAN RESOURCES OFFICE MANAGER), who have been involved in her care (Vikas last week, Rosy last January). There is confusion about the conflicting pathology reports, and further investigation is warranted. The patient is currently being monitored for potential infection and irritation at the fluid puncture site, particularly concerning given the prior invasive procedures. Denies any SI or HI, fevers, chills, N/V, and actually has a increased appetite. Recent file showed pt was given cephalexin 500mg for her puncture site. will cont to monitor Social History - The patient takes care of her grandchi dimas. - She adopted two young kittens which nikki lucas brought to the mineral economist. - Reports assisting significantly with f amilial duties and maintaining an active lifestyle. Review of Systems - Abdominal: Reports swelling and sensit ivity in the abdomen. - Gastrointestinal: Denies alcohol consu mption contributing to cirrhosis. Physical Exam - Abdominal Exam- Noted induration and s ensitivity at the lower abdominal fluid puncture site. Presence of left pelvic swelling, induration, and tenderness with palpation. s1 s2 murmur scattered faint wheezes. A+o x3 Results - Labs: Metastatic carcinoma cells consi stent with gynecological origin detected in ascitic fluid. - Imaging: CT scan indicative of cirrhos is. Plan - Metastatic carcinoma: Continue investi gation to confirm primary origin of the cancer, potentially gynecological. Will send ascites testing results to oncology, gynecology, Gastro specialists. - Ascites: Monitor abdominal swelling an d continue management with consideration of further invasive procedures if necessary. - Cirrhosis: Maintain current non-alcoho lic cirrhosis management plan. Continue monitoring liver function and overall health status/GI, ER if need be for any worsening symptoms (fevers, chills, increased erythema, increased pain, n/v). Patient was informed and verbally consented to the use of an ambient scribe for clinic note documentation during this visit. Discussion Notes I reviewed the conflicting results of the pathological analysis with the patient, explaining the detection of metastatic carcinoma cells consistent with a gynecological origin. I emphasized the necessity of further investigations to confirm the primary cancer site and discussed the possible involvement of gynecological, oncology, and Gastro specialists. I reassured her that we would address the situation diligently and encouraged her to attend all follow-up appointments to gather more definitive information. Additionally, encouraged continued use of diuretic and antibiotic. Knows to go to the ER with worsening symptoms. ? increase in BP due to current situtation/anxiety Patient Instructions - Attend all scheduled follow-up appoint ments with specialists as advised. - Monitor for any changes in symptoms or new developments, particularly at puncture sites, and report them. - Maintain current lifestyle adjustments to support overall health, including activity levels and dietary habits. - Inform medical providers about signifi cant changes in physical symptoms or health status. - Ensure compliance with prescribed medi cations and medical treatments. [facility] Medical History Anxiety Surgical History History of laparoscopic appendectomy Hx of section [place] teeth extracted Family History Father Cancer Mother Ovarian cancer Social History Housing: House Alcohol intake: current Alcohol intake frequency: does not drink Patient Tobacco Use Status: Current everyday Tobacco user Cigarettes Per Day: 4 Years Smoked: 18 years old e-Cigarette/Vaping Use: Never Used Second Hand Smoke Exposure: No service: No Current occupational status: retired Current occupational exposures/hazards: No Cognitive needs: No Hearing needs: No Vision needs: No Questionnaire PHQ-9 Over the last 2 weeks, how often have you been bothered by any of the following problems? 1. Little interest or pleasure in doing things: not at all 2. Feeling down, depressed, or hopeless: not at all 3. Trouble falling or staying asleep, or sleeping too much: not at all 4. Feeling tired or having little energy: not at all 5. Poor appetite or overeating: not at all 6. Feeling bad about yourself - or that you are a failure or have let yourself or your family down: not at all 7. Trouble concentrating on things, such as reading the newspaper or watching television: not at all 8. Moving or speaking so slowly that other people could have noticed. Or the opposite - being so fidgety or restless that you have been moving around a lot more than usual: not at all 9. Thoughts that you would be better off or of hurting yourself in some way: not at all Total score: 0 Depression Screening Interpretation: Negative Depression Screening Done: Yes [id number] - PHQ-9 Billing: Yes Source: Developed by Drs. Darwin Stacy, Mely Gomes, David Perales and colleagues, with an educational maritza from [employer]. Thrive Questionnaire Date Thrive assessed: 08/23/24 I am a: Patient What is your living situation today?: I have a steady place to live Within the past 12 months, did the food you bought not last and you didn't have the money to get more?: Never true Within the past 12 months, did you worry whether your food would run out before you got money to buy more?: Never true Do you have trouble paying for medicines?: No Do you have trouble getting transportation to medical appointments?: No Do you have trouble paying your heating and electricity bill?: No Do you have trouble taking care of your child, family member or friend?: No Do you have trouble with day-to-day activities such as bathing, preparing meals, shopping, managing finances, etc.?: No Are you currently unemployed and looking for a job?: No Are you interested in more education?: No Please select the resources that you would like help with: None Currently or been in a relationship where the following occur: No concerns reported THRIVE Score: 0 AUDIT C Alcohol Use Questionnaire (AUDIT-C) 1. How often do you have a drink containing alcohol?: Never 3. How often do you have six or more drinks on one occasion?: Never Total Score: 0 Score Reviewed/Action Taken: Yes ANGELA-7 AMB Questionnaire ANGELA-7 Date ANGELA - 7 assessed: 08/05/24 Source: Developed by Drs. Darwin Stacy, Mely Gomes, David Perales and colleagues, with an educational maritza from [employer]. Physical exam (Primary Care) Vital Signs: Last Vital Signs Pulse 89 08/23/24 15:44 BP 136/92 H 08/23/24 15:44 Pulse Ox 97 08/23/24 15:44 Oxygen Delivery Method Room Air 08/23/24 15:44 BMI result Body Mass Index 25.2 Tobacco/Smoking Status: Tobacco use Status Tobacco use date assessed 08/23/24 08/23/24 15:45 Patient Tobacco Use Status Current everyday Tobacco 08/23/24 15:45 e-Cigarette/Vaping Use Never Used 08/23/24 15:45 PHQ-9: PHQ-9 Score PHQ-9: Total score 0 08/23/24 16:44 Depression Screening Interpretation: Negative Thrive Assessment: Date of Thrive Assessment Date Thrive assessed 08/23/24 08/23/24 15:45 Currently or been in a relationship where the following occur: No concerns reported Coding Level of Care Code Est Pt Level 3 (86190) Diagnoses Pelvic pain in female R10.2 Diffuse nodular cirrhosis of liver K74.60 Carcinoma of pelvis C76.3 Ascites, malignant R18.0 Additional Codes PHQ-9 - 65081 - PHQ-9 Billing: Yes ([id number]) Assessment & Plan Assessment & Plan (1) Pelvic pain in female: Comment: Possible pelvic congestion syndrome (previous work up in January 2024) Code(s): R10.2 - Pelvic and perineal pain Category: Medical (2) Diffuse nodular cirrhosis of liver: Code(s): K74.60 - Unspecified cirrhosis of liver Category: Medical (3) Carcinoma of pelvis: Code(s): C76.3 - Malignant neoplasm of pelvis Category: Medical (4) Ascites, malignant: Code(s): R18.0 - Malignant ascites Category: Medical Plan . Orders: Referrals Hematology & Oncology Referral C76.3 - Malignant neoplasm of pelvis, K74.60 - Unspecified cirrhosis of liver, R10.2 - Pelvic and perineal pain, R18.0 - Malignant ascites Gastroenterology Referral C76.3 - Malignant neoplasm of pelvis, K74.60 - Unspecified cirrhosis of liver, R10.2 - Pelvic and perineal pain, R18.0 - Malignant ascites [employer]ERING INTERN Referral C76.3 - Malignant neoplasm of pelvis, K74.60 - Unspecified cirrhosis of liver, R10.2 - Pelvic and perineal pain, R18.0 - Malignant ascites
== END 2024-08-23 16:41 | disposition home or self-care (01) ==
PROVIDERS: PCP Nurse Practitioner Family; Visit Provider Nurse Practitioner Family
DX: R10.2 Pelvic and perineal pain (principal); K74.60 Unspecified cirrhosis of liver; C76.3 Malignant neoplasm of pelvis; R18.0 Malignant ascites

== ENCOUNTER → 2024-08-23 15:20 | Outpatient (BNVA) | payer MEDICARE, SELFPAY | PROVIDERS: PCP Nurse Practitioner Family; Visit Provider Nurse Practitioner Family | DX: R10.2 Pelvic and perineal pain (principal); K74.60 Unspecified cirrhosis of liver; R18.0 Malignant ascites; C76.3 Malignant neoplasm of pelvis | CPT/HCPCS: 96127; 99212 ==

== ENCOUNTER → 2024-08-25 11:04 | Outpatient (BNV) | payer MEDICARE, SELFPAY | PROVIDERS: PCP Nurse Practitioner Family; Referring Provider Nurse Practitioner Family; Visit Provider Internal Medicine | DX: R18.0 Malignant ascites (principal); C57.9 Malignant neoplasm of female genital organ, unspecified; Z80.41 Family history of malignant neoplasm of ovary; Z80.0 Family history of malignant neoplasm of digestive organs | CPT/HCPCS: 99205; G2211 ==

== ENCOUNTER 2024-08-31 11:00 | Outpatient (REF) | payer MEDICARE, SELFPAY ==
--- NOTE | ~2024-08-31 | PE_ITS ---
EXAMINATION: FLUORINE-18 FDG PET/CT SCAN CLINICAL INFORMATION: Initial treatment management. Malignant ascites. Ovarian cancer. TECHNIQUE: 67 minutes following the intravenous administration of 17.6 mCi of fluorine 18 FDG, images from the base of skull to mid-thigh were obtained using a combined PET/CT scanner with CT scan based attenuation correction. No intravenous contrast was administered. Transverse, coronal, sagittal, and volume reconstruction projections were obtained. The patient's blood glucose as determined by a finger stick, was 101 mg/dL immediately prior to injection. The radiotracer was injected intravenously through a right antecubital superficial vein, without any complications. Total CT exam dose-length product 670.42 mGy-cm. * These CT images were obtained using dose optimization techniques as appropriate, variously including the following: Automated exposure control * Adjustment of mA and/or kV according to patient size (this includes techniques or standardized protocols for targeted exams where dose is matched to indication/reason for exam; i.e. extremities or head) * Use of iterative reconstruction technique COMPARISON: Pelvic ultrasound done on 02/06/2024 and Limited ultrasound of the pelvis done on 08/18/2024. FINDINGS: SUV MAX REFERENCE: Blood: 1.6 (189/267). Liver: 2.5 (154/267). HEAD AND NECK: No abnormal radiotracer uptake. No large intracranial hemorrhage, acute territorial infarct or significant shift of midline structures. CHEST: Ports and Devices: None Lungs: No abnormal radiotracer uptake. Pleura: No significant pleural effusion. Lymph Nodes: No tracer-avid mediastinal, hilar or internal mammary or axillary lymphadenopathy. Mediastinum: There is no significant pericardial effusion/thickening. Breasts/Chest Wall: No abnormal radiotracer uptake. ABDOMEN/PELVIS: Liver/Biliary System: No focal tracer-avid liver lesion. The gallbladder appears unremarkable. Pancreas: Normal.No focal tracer avid disease. Spleen: No abnormal radiotracer uptake. No evidence of splenomegaly. Adrenal Glands: No abnormal radiotracer uptake. Kidneys: No hydronephrosis, hydroureter or renal calculi bilaterally. Bowel: There is no significant bowel dilatation to suggest obstruction. Lymph Nodes: No tracer avid retroperitoneal, mesenteric or pelvic and/or groin lymphadenopathy. Pelvic Organs: The urinary bladder is underdistended. No evidence of any pelvic mass identified. Specifically no adnexal masses visualized. The uterus is present without any hypermetabolism. Peritoneal cavity: Moderate volume hypermetabolic ascites is present within the pelvis with SUV max of 4.04 (74/267). Given the history of ovarian carcinoma, the finding is highly suspicious for peritoneal metastases. No definite evidence of any omental hypermetabolic disease. Mild paracolic gutter soft tissue thickening and mild tracer activity is present, likely representing disease extension as well. Abdominal wall: Heterogenous hypermetabolic soft tissue mass is present at left lower anterior pelvic wall, measures approximately 8.0 x 4.0 cm and SUV max of 3.69 (93/267), may represent soft tissue hematoma or evolving infection/neoplasm. Clinical correlation and if appropriate image guided biopsy may be considered for further clarification. MUSCULOSKELETAL: Subtle focal increased tracer activity with SUV max of 3.1 is noted at L2 vertebral body (136/267), without any definite CT correlate. Follow-up MRI of the spine may be considered for further clarification, if clinically appropriate. VASCULAR: Calcific atherosclerotic disease of the aorta and its branches including coronary and carotid arterial calcifications. No evidence of aneurysm. THE SITE(S) OF MOST INTENSE FDG AVIDITY AND SUV MAX: Hypermetabolic ascites fluid within the dependent part of the pelvis with SUV max of 4.04. PET/PET CT fusion skull to thigh IMPRESSION: * Moderate volume hypermetabolic ascites is present within the pelvis with SUV max of 4.04. Given the history of ovarian carcinoma, the finding is highly suspicious for peritoneal metastases. No definite evidence of any omental hypermetabolic disease. Mild paracolic gutter soft tissue thickening and mild tracer activity is present, likely representing disease extension as well. * No evidence of any pelvic mass identified. Specifically no adnexal masses visualized. The uterus is present without any hypermetabolism. * Heterogenous hypermetabolic soft tissue mass is present at left lower anterior pelvic wall, measures approximately 8.0 x 4.0 cm and SUV max of 3.69, may represent soft tissue hematoma or evolving infection/neoplasm. Clinical correlation and if appropriate image guided biopsy may be considered for further clarification. * Subtle focal increased tracer activity with SUV max of 3.1 is noted at L2 vertebral body (136/267), without any definite CT correlate. Follow-up MRI of the spine may be considered for further clarification, if clinically appropriate. Electronically signed by: Donell Jose MD 09/06/2024 08:50 AM EST
--- OUTSIDE RECORDS SUMMARY | 2024-09-07 12:59 | XMS_ITS | Patient Health Record ---
Author Organization [facility] Address [address] [place] [address] Care Team Providers Care Net Application Support Specialist Name Role Phone LIZ ARGUELLES Primary Care Provider Jayson Bullock Jr Unavailable ALLERGIES No Known Allergies RESULTS Component Value Reference Range Notes Liver Fibrosis Pnl Reviewed date:08/30/2024 01:12:26 PM Interpretation: Performing Lab:[facility], [address] [place] [phone] Notes/Report: Liver Fibrosis Score 0.05 Liver Fibrosis Stage F0 Liver Fibrosis Interpretation SEE NOTE no fibrosis Fibro Test Score (f) Metavir Score f>=0 and f<=0.21 : F0 (no fibrosis) f>0.21 and f<=0.27 : F0-F1 (no fibrosis) f>0.27 and f<=0.31 : F1 (minimal fibrosis) f>0.31 and f<=0.48 : F1-F2 (minimal fibrosis) f>0.48 and f<=0.58 : F2 (moderate fibrosis) f>0.58 and f<=0.72 : F3 (advanced fibrosis) f>0.72 and f<=0.74 : F3-F4 (advanced fibrosis) f>0.74 and f<=1.00 : F4 (severe fibrosis) Nec Inflam Act Score 0.04 Nec Inflam Act Grade A0 Nec Inflam Act Interpretation SEE NOTE no activity ActiTest Score (a) Metavir Score a>=0 and a<=0.17 : A0 (no activity) a>0.17 and a<=0.29 : A0-A1 (no activity) a>0.29 and a<=0.36 : A1 (minimal activity) a>0.36 and a<=0.52 : A1-A2 (minimal activity) a>0.52 and a<=0.60 : A2 (significant activity) a>0.60 and a<=0.62 : A2-A3 (significant activity) a>0.62 and a<=1.00 : A3 (severe activity) JEI-Htwxo-1-Macroglobulin 107 106-279 mg/dL FIB-Haptoglobin 402 43-212 mg/dL This value is highly elevated over the 99 percentile. Check the value and the absence of sepsis. Usual maximum value is 320.0 mg/dl. FIB-Apolipoprotein A1 124 101-198 mg/dL FIB-Total Bilirubin 0.4 0.2-1.2 mg/dL FIB-GGT 15 3-65 U/L FIB-ALT 16 6-29 U/L Reference ID [id number] Footnote SEE NOTE The reliability of results is dependent on compliance with the preanalytical and analytical conditions recommended by [employer]. The tests have to be deferred for: acute hemolysis, acute hepatitis, acute inflammation, extra hepatic cholestasis. The advice of a specialist should be sought for interpretation in chronic hemolysis and Gilbert's syndrome. The test interpretation is not validated in liver transplant patients. Isolated extreme values of one of the components should lead to caution in interpreting the results. In case of discordance between a biopsy result and a test, it is recommended to seek the advice of a specialist. The causes of these discordances could be due to a flaw of the test or to a flaw in the biopsy: i.e. a liver biopsy has a 33% variability rate for one fibrosis stage. FibroTest is interpretable for chronic hepatitis B and C, alcoholic and non alcoholic steatosis. ActiTest is interpretable for chronic hepatitis B and C. The performance characteristics have been determined by [facility]. It has not been cleared or approved by the U.S. Food and Drug Administration. Performance characteristics refer to the analytical performance of the test. Tapgage, the associated logo, Tideway and all associated [employer] perez are the registered trademarks of [employer]. All third libertarian perez - (R) and (TM) - are the property of their respective owners. (C) 3637-1719 built[employer]. All rights reserved. THIS TEST WAS PERFORMED AT: [facility] [address] [place] [address] GRANT GEORGE MD,PHD,BERRY ISAAC Reflex Titer and Pattern Reviewed date:08/25/2024 08:19:30 AM Interpretation: Performing Lab:[facility], [address] [place] [phone] Notes/Report: Anti Nuclear Antibody Screen NEGATIVE NEGATIVE ISAAC IFA is a first line screen for detecting the presence of up to approximately 150 autoantibodies in various autoimmune diseases. A negative ISAAC IFA result suggests an ISAAC-associated autoimmune disease is not present at this time, but is not definitive. If there is high clinical suspicion for Sjogren's syndrome, testing for anti-SS-A/Ro antibody should be considered. Anti-Tamie-1 antibody should be considered for clinically suspected inflammatory myopathies. AC-0: Negative International Consensus on ISAAC Patterns (https://doi.org/10.1515/ccl m-3752-6563) For additional information, please refer to http://education.[employer]/faq/XXU073 (This link is being provided for informational/ educational purposes only.) THIS TEST WAS PERFORMED AT: [facility] [address] [place] [phone] DAVID JACOB MD Anti Nuclear Antibody Titer TNP Anti Nuclear Antibody Pattern TNP ISAAC Titer 2 TNP ISAAC Pattern 2 TNP ISAAC Titer 3 TNP ISAAC Pattern 3 TNP Complete Blood Count Auto Di ff Reviewed date:08/19/2024 07:54:09 AM Interpretation: Performing Lab:[facility], [address] [place] [phone] Notes/Report: White Blood Count 8.6 4.8-10.8 X10*3/uL Red Blood Count 4.65 4.20-5.50 X10*6/uL Hemoglobin 14.5 12.0-16.0 g/dl Hematocrit 42.3 37.0-47.0 % Mean Corpuscular Volume 91.0 80.0-98.0 fL Mean Corpuscular Hemoglobin 31.2 27.0-33.0 pg Mean Corpuscular HGB Conc 34.3 31.0-35.0 g/dl Red Cell Distribution Width 12.6 11.0-16.0 % Platelet Count 319 160-400 X10*3/uL Mean Platelet Volume 9.9 9.4-12.3 fL Neutrophils Percent Auto 67.1 45-73 % Imm Gran Pct Auto 0.2 0.0-0.4 % Lymphocytes Percent Auto 23.9 20-40 % Monocytes Percent Auto 7.7 2-11 % Eosinophils Percent Auto 0.5 0-4 % Basophils Percent Auto 0.6 0-2 % NRBC Pct Auto 0.0 0.0-0.2 /100WBC Neutrophils Absolute Auto 5.7 2.0-8.3 x10*3/u L Imm Gran Abs Auto 0.02 0.00-0.03 X10*3/uL Lymphocytes Absolute Auto 2.0 1.2-4.9 X10*3/u L Monocytes Absolute Auto 0.7 0.1-1.2 X10*3/uL Eosinophils Absolute Auto 0.0 0.0-0.4 X10*3/u L Basophils Absolute Auto 0.1 0.0-0.2 X10*3/uL NRBC Abs Auto 0.000 0.0-0.012 X10*3/uL Liver Panel Reviewed date:08/19/2024 07:53:39 AM Interpretation: Performing Lab:[facility], [address] [place] [phone] Notes/Report: Bilirubin Total 0.4 0.0-1.0 mg/dL Bilirubin Direct 0.1 0.0-0.5 mg/dL Aspartate Amino Transferase 47 5-31 U/L Alanine Aminotransferase 19 0-31 U/L Total Protein 6.6 6.5-8.0 g/dL Albumin Level 3.7 3.5-5.0 g/dL Alkaline Phosphatase 92 39-117 U/L Basic Metabolic Panel Reviewed date:08/19/2024 07:54:04 AM Interpretation: Performing Lab:[facility], [address] [place] [phone] Notes/Report: Sodium 139 135-145 mmol/L Potassium 3.4 3.3-5.1 mmol/L Chloride 102 96-108 mmol/L Carbon Dioxide 26 22-29 mmol/L Anion Gap 14 12-20 Blood Urea Nitrogen 10 9-16 mg/dL Creatinine 0.64 0.5-1.4 mg/dL Estimated Glomerular Filt Rate > 60 Chronic Kidney Disease: Estimated GFR < 60 mL/min/1.73m2 Severe Kidney Disease: Estimated GFR < 15 mL/min/1.73m2 Glucose Random 104 60-115 mg/dL Calcium 8.8 8.4-10.2 mg/dL IRON PROFILE Reviewed date:08/19/2024 07:53:51 AM Interpretation: Performing Lab:[facility], [address] [place] [phone] Notes/Report: Iron 69 30-160 mcg/dL Total Iron Binding Capacity 243 228-428 mcg/d L Percent Iron Saturation 28 15-50 % Unsaturated Iron Binding 174 Ferritin Reviewed date:08/19/2024 07:54:15 AM Interpretation: Performing Lab:[facility], [address] [place] [phone] Notes/Report: Ferritin 247 10-250 ng/mL Mitochondrial Antibody Reviewed date:08/30/2024 01:12:47 PM Interpretation: Performing Lab:[facility], [address] [place] [phone] Notes/Report: Mitochondrial Antibodies NEGATIVE NEGATIVE THIS TEST WAS PERFORMED AT: [facility] [address] [address] DAVID JACOB MD Mitochondrial Ab Titer TNP Smooth Muscle Antibody Reviewed date:08/30/2024 01:12:41 PM Interpretation: Performing Lab:[facility], [address] [place] [phone] Notes/Report: Smooth Muscle Antibody <20 <20 U Reference Range: <20 U: Negative >or=20 U: Positive Antibodies recognizing actin are the main component of smooth muscle antibodies associated with auto- immune liver disease. Actin antibodies are found in approximately 75% of patients with autoimmune hepatitis (AIH) type 1, approximately 65% of patients with autoimmune cholangitis, approximately 30% of patients with primary biliary cirrhosis and approximately 2% of healthy controls. High values are closely correlated with AIH type 1. THIS TEST WAS PERFORMED AT: [facility]/[address] MISTY DUNN MD,PHD US pelvic limited Reviewed date:08/19/2024 07:54:22 AM Interpretation: Performing Lab: Notes/Report: [facility] [address] [place] [address] Ultrasound Report Signed Patient: Law Serrano MR#: [id number] 64 : 1950 Acct:[id number] Age/Sex: 74 / F ADM Date: 08/18/24 Loc: HO.HMGCX Attending Dr: Jayson Bean MD Ordering Physician: Jayson Bean MD Date of Service: 08/18/24 Procedure(s): US pelvic limited Accession Number(s): [id number] cc: Jayson Bean MD; [facility] EXAMINATION: US PELVIC, LIMITED CLINICAL INFORMATION: Left lower quadrant mass. Paracentesis in this region. Firm, red and tender. Evaluate for hematoma. COMPARISON: Most recent abdominal ultrasound dated 08/07/2024. TECHNIQUE: Grayscale, Doppler, and cine images were obtained of the left lower quadrant in the region of the patient's findings. FINDINGS: Skin thickening with subcutaneous stranding and heterogeneity in the left lower quadrant at the region of the patient's findings. Ill-defined, hypoechoic area measuring up to 12.2 cm in greatest dimension. Findings likely represent cellulitis with phlegmonous change. No organized fluid collection. US/US pelvic limited IMPRESSION: Skin thickening with subcutaneous stranding and heterogeneity in the region of the patient's findings. Findings likely represent cellulitis with phlegmonous change. No organized fluid collection. Electronically signed by: Reese Vernon MD 08/18/2024 11:10 AM [facility] Dictated By: Reese Vernon MD Signed By: <Electronically signed by Reese Vernon MD in OV> 08/18/24 1110 DD/ 2 TD/TT: 08/18/24940 Adjuster And Inspector: REASON FOR REFERRAL No Information MEDICATIONS Medication SIG (Take, Route, Fr equency, Duration) Notes Start Date End Date Status Cephalexin 500 MG 1 capsule Orally jas ry 6 hrs for 7 days 08/18/2024 Active Furosemide 40 MG 1 tablet Orally Once a day for 30 day(s) 08/16/2024 Active Spironolactone 100 MG 1 tablet Orally On ce a day for 30 day(s) 08/16/2024 Active IMMUNIZATIONS Vaccine Route Administration Date Status Comme nts Influenza Unknown 08/16/2024 Refused SOCIAL HISTORY Sex Assigned At : Social History Observation Description Sex Assigned At Unknown PROBLEMS Problem Type ICD Code Onset Dates Problem Status W/U Status Risk SNOMED Code Notes Problem Colon cancer screening (Z12.11) Active confirmed 902285665 Problem Other specified pre-operative examination (Z01.818) Active confirmed 30933805 Problem Other ascites (R18.8) Active confirmed 345174346 Problem Other cirrhosis of liver (K74.69) Active confirmed 95452736 VITAL SIGNS Temperature 98.0 degrees Fahrenheit 08/16/2024 Blood pressure diastolic 00 mm Hg 08/16/2024 Height 66 in 08/16/2024 Blood pressure systolic 000 mm Hg 08/16/2024 Weight 168 lb 4 oz lbs 08/16/2024 BMI 27.15 kg/m2 08/16/2024 Encounters Encounter Location Date Provider Diagnosis [facility] [address] [place] [phone] 08/16/2024 Jayson Bean Jr Other ascites R18.8 ; Other cirrhosis of liver K74.69 and Colon cancer screening Z12.11 [facility] [address] [place] [address] 08/18/2024 Jayson Bean Jr [facility] [address] [place] [address] 08/25/2024 Jayson Bean Jr ASSESSMENTS Encounter Date Diagnosis Assessment Notes Treatment Notes Treatment Clinical Notes 08/16/2024 Other cirrhosis of liver (ICD-10 - K74.69) 08/16/2024 Other ascites (ICD-10 - R18.8) labs to be done 1 week after starting diuretics. 08/16/2024 Colon cancer screening (ICD-10 - Z12.11) Colonoscopy material was printed PLAN OF TREATMENT Pending Test Test Name Order Date CHEM 7 PROFILE 08/16/2024 LIVER PROFILE 08/16/2024 IRON + IBC (FE) 08/16/2024 FERRITIN 08/16/2024 CBC w/o DIFF 08/16/2024 MITOCHONDRIAL AB 08/16/2024 SMOOTH MUSCLE ANTIBODIES 08/16/2024 US abdomen limited 08/16/2024 Future Test Test Name Order Date COLONOSCOPY 08/03/2015 UPPER GI ENDOSCOPY 08/16/2024 COLONOSCOPY 08/16/2024 Next Appt Details Provider Name:Jayson Glass Cesar palomo Jr, 09/28/2024 07:30:00 AM, [address] [place] [address] , [place], [place], [phone], Insurance Providers Payer Name Payer Address Payer Phone Subscriber Number Group Number Insured Name Patient Relationship to Insured Coverage Start Date Coverage End Date MEDICARE OF [place] [address] [facility] [place] [id number] LAW SERRANO Self - patient is the insured [employer] ATT[employer] CLAIMS [address] [place] [address] [id number] LAW SERRANO Self - patient is the insured MEDICAL (GENERAL) HISTORY Medical History History ICD Code Hyperlipidemia Aortic stenosis, mild Colonoscopy 04/13, normal, five-year foll owup Anxiety Cirrhosis/ascites Surgical History Surgery Date(Month/Year) Hospitalization History Reason Date(Month/Year) ascites
--- OUTSIDE RECORDS SUMMARY | 2024-09-07 12:59 | XMS_ITS ---
Author Organization [facility] Address [address] [place] [address] Care Team Providers Care Crusher Wet Ground Mica Name Role Phone LIZ KNOX Primary Care Provider Jayson Bullock Jr Unavailable ALLERGIES No Known Allergies RESULTS Component Value Reference Range Notes Liver Fibrosis Pnl Reviewed date:08/30/2024 01:12:26 PM Interpretation: Performing Lab:[facility], [address] [place] [phone] Notes/Report: Liver Fibrosis Score 0.05 Liver Fibrosis [...] a>0.62 and a<=1.00 : A3 (severe activity) DAV-Dadmo-7-Macroglobulin 107 106-279 mg/dL FIB-Haptoglobin 402 43-212 mg/dL This value is highly elevated over the 99 percentile. Check the value and the absence of sepsis. Usual maximum value is 320.0 mg/dl. FIB-Apolipoprotein A1 124 101-198 mg/dL FIB-Total Bilirubin 0.4 0.2-1.2 mg/dL FIB-GGT 15 3-65 U/L FIB-ALT 16 6-29 U/L Reference ID [id number] Footnote SEE NOTE The reliability of results is dependent on compliance with the preanalytical and analytical conditions recommended by [employer]. The tests have to be deferred for: [...] The performance characteristics have been determined by [facility]. It has not been cleared or approved by the U.S. Food and Drug Administration. Performance characteristics refer to the analytical performance of the test. Predictify, the associated logo, Focus and all associated [employer] perez are the registered trademarks of [employer]. All third libertarian perez - (R) and (TM) - are the property of their respective owners. (C) 8054-4164 [employer]. All rights reserved. THIS TEST WAS PERFORMED AT: [facility] [address] [place] [address] GRANT GEORGE MD,PHD,BERRY ISAAC Reflex Titer and Pattern Reviewed date:08/25/2024 08:19:30 AM Interpretation: Performing Lab:[facility], [address] [place] [phone] Notes/Report: Anti Nuclear Antibody Screen NEGATIVE NEGATIVE [...] AC-0: Negative International Consensus on ISAAC Patterns (https://doi.org/10.1515/cclm- 9881-0502) For additional information, please refer to http://education.[employer]SpotLand.com/faq/EWV651 (This link is being provided for informational/ educational purposes only.) THIS TEST WAS PERFORMED AT: [facility] [address] [place] [phone] DAVID JACOB MD Anti Nuclear Antibody Titer TNP Anti Nuclear Antibody Pattern TNP ISAAC Titer 2 TNP ISAAC Pattern 2 TNP ISAAC Titer 3 TNP ISAAC Pattern 3 TNP REASON FOR VISIT Patient presents today for ascites MEDICATIONS Medication SIG (Take, Route, Fr equency, Duration) Notes Start Date End Date Status Furosemide 40 MG 1 tablet Orally Once a day for 30 day(s) 08/16/2024 Active Spironolactone 100 MG 1 tablet Orally On ce a day for 30 day(s) 08/16/2024 Active IMMUNIZATIONS Vaccine Route Administration Date Status Comme nts Influenza Unknown 08/16/2024 Refused PROBLEMS Problem Type ICD Code Onset Dates Problem Status W/U Status Risk SNOMED Code Notes Problem Other ascites (R18.8) Active confirmed 601047726 Problem Other cirrhosis of liver (K74.69) Active confirmed 46384918 VITAL SIGNS BMI 27.15 kg/m2 08/16/2024 Blood pressure systolic 000 mm Hg 08/16/20 24 Blood pressure diastolic 00 mm Hg 024 Height 66 in 08/16/2024 Temperature 98.0 degrees Fahrenheit 08/16/20 24 Weight 168 lb 4 oz lbs 08/16/2024 Encounters Encounter Location Date Provider Diagnosis [facility] [address] [place] [address] 08/16/2024 Jayson Bean Jr Other ascites R18.8 ; Other cirrhosis of liver K74.69 and Colon cancer screening Z12.11 ASSESSMENTS Encounter Date Diagnosis Assessment Notes Treatment Notes Treatment Clinical Notes 08/16/2024 Other ascites (ICD-10 - R18.8) labs to be done 1 week after starting diuretics. 08/16/2024 Other cirrhosis of liver (ICD-10 - K74.69) 08/16/2024 Colon cancer screening (ICD-10 - Z12.11) Colonoscopy material was printed PLAN OF TREATMENT Medication Medication Name Sig Start Date Stop Date Notes Furosemide 40 MG 1 tablet Orally Once a day for 30 day(s) 08/16/2024 Spironolactone 100 MG 1 tablet Orally On ce a day for 30 day(s) 08/16/2024 Treatment Notes Assessment Notes Other ascites labs to be done 1 we ek after starting diuretics. Colon cancer screening Colonoscopy mater ial was printed Pending Test Test Name Order Date CHEM 7 PROFILE 08/16/2024 LIVER PROFILE 08/16/2024 IRON + IBC (FE) 08/16/2024 FERRITIN 08/16/2024 CBC w/o DIFF 08/16/2024 MITOCHONDRIAL AB 08/16/2024 SMOOTH MUSCLE ANTIBODIES 08/16/2024 US abdomen limited 08/16/2024 Future Test Test Name Order Date UPPER GI ENDOSCOPY 08/16/2024 COLONOSCOPY 08/16/2024 Next Appt Details Follow Up: 1 Year, Reason: Provider Name:Jayson palomo Jr, 09/28/2024 07:30:00 AM, [address] [place] [address] , [place], [place], [phone], Progress Notes * Examination Category Sub-Category Detail Notes General Examination GENERAL APPEARANCE: in no ac [place] distress HEAD: normocephalic EYES: sclera non-icteric NECK/THYROID: no lymphadenopathy HEART: S1, S2 normal, no mu rmurs CHEST: normal shape and exp ansion LUNGS: clear to auscultatio n bilaterally ABDOMEN: soft, nontender, non distended, bowel sounds present, no organomegaly SKIN: anicteric EXTREMITIES: no clubbing, cyanosi s, or edema PSYCH: cognitive function i ntact ORAL CAVITY: mucosa moist
--- OUTSIDE RECORDS SUMMARY | 2024-09-07 12:59 | XMS_ITS ---
Author Organization [facility] Address [address] [place] [address] Care Team Providers Care Medical Office Assistant Instructor Name Role Phone ANNESAEED LIZ Primary Care Provider Jayson Bullock Jr [phone] REASON FOR VISIT ultrasound/labs MEDICATIONS Medication SIG (Take, Route, Fr equency, Duration) Notes Start Date End Date Status Cephalexin 500 MG 1 capsule Orally jas ry 6 hrs for 7 days 08/18/2024 Active Encounters Encounter Location Date Provider Diagnosis [facility] [address] [place] [phone] 08/18/2024 Jayson Bean Jr PLAN OF TREATMENT Medication Medication Name Sig Start Date Stop Date Notes Cephalexin 500 MG 1 capsule Orally every 6 hrs for 7 days 08/18/2024 Next Appt Details Provider Name:Jayson palomo Jr, 09/28/2024 07:30:00 AM, [address] [place] [address] , [place], [place], [phone],
--- OUTSIDE RECORDS SUMMARY | 2024-09-07 12:59 | XMS_ITS ---
Author Organization [facility] Address [address] [place] [address] Care Team Providers Care Radiator Mechanic Name Role Phone LIZ KNOX Primary Care Provider Jayson Bullock Jr REASON FOR VISIT cytology Encounters Encounter Location Date Provider Diagnosis [facility] [address] [place] [phone] 08/25/2024 Jayson Bean Jr PLAN OF TREATMENT Next Appt Details Provider Name:Jayson palomo Jr, 09/28/2024 07:30:00 AM, [address] [place] [address] , [place], [place], [phone],
== END 2024-08-31 11:01 | disposition home or self-care (01) ==
LOC: HO.PET 11:00
PROVIDERS: PCP Nurse Practitioner Family; Visit Provider Internal Medicine
DX: Z13.89 Encounter for screening for other disorder (principal)

== ENCOUNTER 2025-07-27 11:17 | Outpatient (AMB) | payer MEDICARE, SELFPAY ==
--- OUTSIDE RECORDS SUMMARY | 2024-09-28 03:30 | XMS_ITS ---
Author Organization [facility] Address [address] [place] [address] Care Team Providers Care Chili Powder Mixer Name Role Phone LIZ KNOX Primary Care Provider Jayson Bullock Jr [phone] REASON FOR VISIT screening,cirrhosis,ascites Encounters Encounter Location Date Provider Diagnosis [facility] [address] [place], [place] [phone] 09/28/2024 Jayson Bean Jr Plan Of Treatment No Information Progress Notes * BENJAMÍN SERRANOOB: 2 (75 yo F)Acc No.[id number]:09/28/2024 EGD and COL/MAC Patient: LAW HOLLAND Provider: Rula Bean MD :1950 A ge:74 Y S ex:Female Date:09/28/2024 Address:[address] [place], [place] [address] Pcp:LIZ KNOX Subjective: * Chief Complaints: * 1 . Screening,cirrhosis,ascites. * Medical History: Objective: * Vitals: Assessment: Plan: * Treatment: * * The named appointment provid er may or may not be the originator of this progress note, and it is not deemed complete until electronically signed by the appointment provider. Sign off status: Pending * Provider: Rula Bean MD Date: Generated for Printi ng/Faxing/eTransmitting on: 02:23 PM EDT
--- NOTE | 2025-07-27 11:45 | A.OFFVIS_ITS ---
Intake Vital Signs 07/27/25 11:46 07/27/25 12:31 Height 5 ft 5 in Weight 150 lb BMI 25.0 BP 172/96 H 138/72 Blood Pressure Location Rt brachial Lt brachial Position Sitting Sitting Respiration 16 Pulse 85 Pulse Source Pulse Oximeter Temp 97.4 F Temp Source Oral Pulse Oximetry (%) 97 Oxygen Delivery Method Room Air Intake Visit Reasons: SAWV G0439, resched - see comments Product Introduction Manager Required: No Accompanied by: Self / Same As Patient Allergies atorvastatin (Lipitor) Allergy (Unknown, Verified 07/27/25 11:53) Hives oxycodone Allergy (Unknown, Verified 07/27/25 11:53) Hallucinations/Sweats, hallucinations, psych simvastatin Allergy (Unknown, Verified 07/27/25 11:53) Hives HPI SAWV G0439, resched - see comments HPI Details AWV: CCC not filled out, PPP filled out. Knows she is due for a mammo and colon screen. since cancer diagnoses, she has not had these performed. She understood the importance of getting these screening performed. HPI Comments History of Present Illness Details hx of ovarian/pelvic carcinoma ([employer]), following up with oncology on a regular basis, chemo. Pt reports doing quite well overall. HTN: pt was nervous, though after calming down, BP is much better. She will cont to monitor at home PFSH Medical History Anxiety Surgical History H/O: hysterectomy History of laparoscopic appendectomy Hx of section [place] teeth extracted Family History Father Lung cancer Cancer Mother Ovarian cancer Brother Colon cancer Sister Ovarian cancer Social History Household Members: Spouse Housing: House Alcohol intake: current Alcohol intake frequency: does not drink Patient Tobacco Use Status: Current everyday Tobacco user Years Smoked: 18 years old e-Cigarette/Vaping Use: Never Used Second Hand Smoke Exposure: No service: No Current occupational status: retired Current occupational exposures/hazards: No Gender identity: Female Cognitive needs: No Hearing needs: No Vision needs: No Questionnaire Medicare Wellness Checkup [age] What gender do you identify with?: female During the past 4 weeks, how much have you been bothered by emotional problems such as feeling anxious, depressed, irritable, sad or downhearted, and blue?: not at all During the past 4 weeks, has your physical & emotional health limited your social activities with family, friends, neighbors, or groups?: not at all During the past 4 weeks, how much bodily pain have you generally had?: no pain During the past 4 weeks, was someone available to help you if you needed & wanted help?: yes, as much as I wanted During the past 4 weeks, what was the hardest physical activity you could do for at least 2 minutes?: very heavy Can you get to places out of walking distance without help? (For eg., can you travel alone on buses, taxis or drive your car?): Yes Can you go shopping for groceries or clothes without someone's help?: Yes Can you prepare your own meals?: Yes Can you do your housework without help?: No Because of any health problems, do you need the help of another person with your personal care needs such as eating, bathing, dressing or getting around the house?: No Can you handle your own money without help?: Yes During the past 4 weeks, how would you rate your health in general?: excellent During the past 4 weeks how have things been going for you?: very well; could hardly better Are you having difficulties driving your car?: no Do you always fasten your seat belt when you are in a car?: yes, usually During past 4 weeks, have you been bothered by the following: never: Falling or dizzy when standing up, Sexual problems?, Trouble eating well?, Teeth or denture problems?, Problems using the telephone? and Tiredness or fatigue? Have you fallen 2 or more times in the past year?: No Are you afraid of falling?: Yes Are you a smoker?: yes, and I might quit During the past 4 weeks, how many drinks of wine, beer, or other alcoholic beverages did you have?: 1 drink or less per week Do you exercise for about 20 minutes 3 or more times a week?: yes, some of the time Have you been given information to help with the following?: yes: Hazards in your house that might hurt you? and yes: Keeping track of your medications? How often do you have trouble taking medicines the way you have been told to take them?: I always take medicine as prescribed How confident are you that you can control & manage most of your health problems?: very confident What is your race?: White Mini Mental State Exam (MMSE) Orientation What is the (year) (season) (date) (day) (month)?: year, season, date, day and month Where are we (state) (county) (town or city) (hospital) (floor)?: state, county, town or city, hospital/clinic and floor Registration Name of 3 unrelated objects clearly and slowly, then ask patient to repeat all 3 of them. (1st repeat determines score. Make sure they can repeat all three): object 1, object 2 and object 3 Attention & Calculation (CHOOSE ONE) Spell WORLD backwards (DLROW): 5 letters Recall Ask patient to repeat the 3 items from question #3.: object 1, object 2 and object 3 Language Show patient a wristwatch & ask what it is. Repeat for pencil.: watch and pencil Ask the patient to repeat the phrase 'No ifs, ands, or buts' after you.: correct Ask the patient to 'take a piece of paper with their right hand' 'fold paper in half' 'place paper on floor': take paper in right hand, fold paper in half and place paper on floor Print the sentence 'CLOSE YOUR EYES' on a piece. If patient actually closes eyes then score.: followed written direction Give patient a blank piece of paper & ask to write a sentence. Score if it contains a noun & verb.: sentence contains subject and verb Ask patient to copy figure of intersecting pentagons exactly. Score if all 10 angles & 2 intersects are included.: all 10 angles present & 2 are intersected Score Score: 30 Activity of Daily Living Bathing - sponge bath, tub bath or shower: receives no assistance (gets in/out by self, if usual bathing means Dressing - getting clothes from closets & drawers, including inner/outer garments & fasteners.: gets clothes & gets completely dressed without help Toileting - going to the 'toilet room' for urine/bowel elimination & cleaning self/arranging clothes: goes to toilet room, cleans self, arranges clothes without help Transfer: moves in & out of bed and chair without help (may use support object) Continence: controls urination/bowel movements completely by self Feeding: feeds self without help Total Score: 0 Information obtained from: patient Using telephone: independent Traveling: independent Shopping: independent Preparing meals: independent Housework: independent Taking medicine: independent Managing money: independent PHQ-9 Over the last 2 weeks, how often have you been bothered by any of the following problems? 1. Little interest or pleasure in doing things: not at all 2. Feeling down, depressed, or hopeless: not at all 3. Trouble falling or staying asleep, or sleeping too much: not at all 4. Feeling tired or having little energy: not at all 5. Poor appetite or overeating: not at all 6. Feeling bad about yourself - or that you are a failure or have let yourself or your family down: not at all 7. Trouble concentrating on things, such as reading the newspaper or watching television: not at all 8. Moving or speaking so slowly that other people could have noticed. Or the opposite - being so fidgety or restless that you have been moving around a lot more than usual: not at all 9. Thoughts that you would be better off or of hurting yourself in some way: not at all Total score: 0 Depression Screening Interpretation: Negative Depression Screening Done: Yes 06836 - PHQ-9 Billing: Yes Source: Developed by Drs. Darwin Stacy, Mely Gomes, David Perales and colleagues, with an educational maritza from [employer]. Physical Exam Vital Signs: Last Vital Signs Temp 97.4 F 07/27/25 11:46 Pulse 85 07/27/25 11:46 Resp 16 07/27/25 11:46 BP 172/96 H 07/27/25 11:46 Pulse Ox 97 07/27/25 11:46 Oxygen Delivery Method Room Air 07/27/25 11:46 BMI result Body Mass Index 25.0 Resp Other: fairly clear Cardio Other: s1s2, mumur present Neuro Other: passed whisper test, able to tandem walk, able to stand from seated position, neg rhomberg Assessment & Plan Assessment & Plan (1) HTN (hypertension): Code(s): I10 - Essential (primary) hypertension (2) Vitamin D deficiency: Code(s): E55.9 - Vitamin D deficiency, unspecified (3) Postmenopausal: Code(s): Z78.0 - Asymptomatic menopausal state (4) Encounter for subsequent annual wellness visit (AWV) in Medicare patient: Code(s): Z00.00 - Encounter for general adult medical examination without abnormal findings (5) Systolic murmur: Code(s): R01.1 - Cardiac murmur, unspecified Plan . Orders: Orders Comprehensive [place]. Panel Fast Today I10 - Essential (primary) hypertension CA echo transthoracic complete Today R01.1 - Cardiac murmur, unspecified Complete Blood Count Auto Diff Today I10 - Essential (primary) hypertension TSH reflex Free T4 Today I10 - Essential (primary) hypertension UA CC w/rflx Micro + Cult Today I10 - Essential (primary) hypertension Lipid Panel Today I10 - Essential (primary) hypertension MM screening mammo BI Today Z12.31 - Encounter for screening mammogram for malignant neoplasm of breast XR DEXA axial skeleton Today E55.9 - Vitamin D deficiency, unspecified, Z78.0 - Asymptomatic menopausal state Medications: Refilled acetic acid 2% 4 drps otic (ears) TID PRN 15 mL 3RF ear irritation 5 days H93.8X9 - Other specified disorders of ear, unspecified ear Quality Reporting (2019) Depression/Bipolar (159/160/161/177) PHQ-9: Total score: 0 Coding Level of Care Code Medicare Subsequent (G0439) Est Pt Level 3 (82136) Diagnoses HTN (hypertension) I10 Vitamin D deficiency E55.9 Postmenopausal Z78.0 Encounter for subsequent annual wellness visit (AWV) in Medicare patient Z00.00 Systolic murmur R01.1 Additional Codes PHQ-9 - 03770 - PHQ-9 Billing: Yes ([id number]) Advance Care Planning Forms completed: Health Care Proxy (needs to be filled out, pt aware), MOLST (filled out) and Living will (done according to pt)
[2025-07-27 11:46] VITALS: BP 172/96; PULSE 85; RESP 16; TEMP 36.3; O2SAT 97; BMI 25.0
[2025-07-27 12:31] VITALS: BP 138/72
--- OUTSIDE RECORDS SUMMARY | 2025-07-27 14:23 | XMS_ITS | Patient Health Record ---
Author Organization [facility] Address [address] [place] [address] Care Team Providers Care Auto Glass Worker Name Role Phone LIZ ARGUELLES Primary Care Provider Jayson Bullock Jr Unavailable Allergies No Known Allergies Results Component Value Reference Range Notes Liver Fibrosis Pnl Reviewed date:08/30/2024 01:12:26 PM Interpretation: Performing Lab:[facility], [address] [place] [phone] Notes/Report: Liver Fibrosis Score 0.05 Liver Fibrosis [...] a>0.62 and a<=1.00 : A3 (severe activity) SKX-Kccdt-3-Macroglobulin 107 106-279 mg/dL FIB-Haptoglobin 402 43-212 mg/dL This value is highly elevated over the 99 percentile. Check the value and the absence of sepsis. Usual maximum value is 320.0 mg/dl. FIB-Apolipoprotein A1 124 101-198 mg/dL FIB-Total Bilirubin 0.4 0.2-1.2 mg/dL FIB-GGT 15 3-65 U/L FIB-ALT 16 6-29 U/L Reference ID [id number] Footnote SEE NOTE The reliability of results is dependent on compliance with the preanalytical and analytical conditions recommended by 99tests. The tests have to be deferred for: [...] The performance characteristics have been determined by [employer]. It has not been cleared or approved by the U.S. Food and Drug Administration. Performance characteristics refer to the analytical performance of the test. Kira [employer], the associated logo, [employer] and all associated [employer] perez are the registered trademarks of [employer]. All third republican perez - (R) and (TM) - are the property of their respective owners. (C) [id number] Take[employer]. All rights reserved. THIS TEST WAS PERFORMED AT: [facility] [address] [place] [address] GRANT GEORGE MD,PHD,BERRY ISAAC Reflex Titer and Pattern Reviewed date:08/25/2024 08:19:30 AM Interpretation: Performing Lab:[facility], [address] [place] [phone] Notes/Report: Anti Nuclear Antibody Screen NEGATIVE NEGATIVE [...] Negative International Consensus on ISAAC Patterns (https://doi.org/10.1515/ccl m-7295-5031) For additional information, please refer to http://education.[employer]/faq/DBG600 (This link is being provided for informational/ educational purposes only.) THIS TEST WAS PERFORMED AT: [facility] [address] [place] [phone] DAVID JACOB MD Anti Nuclear Antibody Titer TNP Anti Nuclear Antibody Pattern TNP ISAAC Titer 2 TNP ISAAC Pattern 2 TNP ISAAC Titer 3 TNP ISAAC Pattern 3 TNP Complete Blood Count Auto Di ff Reviewed date:08/19/2024 07:54:09 AM Interpretation: Performing Lab:[facility], [address] [place] [phone] Notes/Report: White Blood Count 8.6 4.8-10.8 X10*3/uL [...] Panel Reviewed date:08/19/2024 07:53:39 AM Interpretation: Performing Lab:[facility], [address] [place] [phone] Notes/Report: Bilirubin Total 0.4 0.0-1.0 mg/dL Bilirubin Direct 0.1 0.0-0.5 mg/dL Aspartate Amino Transferase 47 5-31 U/L Alanine Aminotransferase 19 0-31 U/L Total Protein 6.6 6.5-8.0 g/dL Albumin Level 3.7 3.5-5.0 g/dL Alkaline Phosphatase 92 39-117 U/L Basic Metabolic Panel Reviewed date:08/19/2024 07:54:04 AM Interpretation: Performing Lab:[facility], [address] [place] [phone] Notes/Report: Sodium 139 135-145 mmol/L Potassium 3.4 [...] PROFILE Reviewed date:08/19/2024 07:53:51 AM Interpretation: Performing Lab:[facility], [address] [place] [phone] Notes/Report: Iron 69 30-160 mcg/dL Total Iron Binding Capacity 243 228-428 mcg/d L Percent Iron Saturation 28 15-50 % Unsaturated Iron Binding 174 Ferritin Reviewed date:08/19/2024 07:54:15 AM Interpretation: Performing Lab:[facility], [address] [place] [phone] Notes/Report: Ferritin 247 10-250 ng/mL Mitochondrial Antibody Reviewed date:08/30/2024 01:12:47 PM Interpretation: Performing Lab:[facility], [address] [place] [phone] Notes/Report: Mitochondrial Antibodies NEGATIVE NEGATIVE THIS TEST WAS PERFORMED AT: [facility] [address] [address] DAVID JACOB MD Mitochondrial Ab Titer TNP Smooth Muscle Antibody Reviewed date:08/30/2024 01:12:41 PM Interpretation: Performing Lab:[facility], [address] [place] [phone] Notes/Report: Smooth Muscle Antibody <20 <20 U [...] type 1. THIS TEST WAS PERFORMED AT: [facility] MISTY DUNN MD,PHD US pelvic limited Reviewed date:08/19/2024 07:54:22 AM Interpretation: Performing Lab: Notes/Report: [facility] [address] [place] [address] Ultrasound Report Signed Patient: Law Serrano MR#: [id number] 64 : 1950 Acct:[id number] Age/Sex: 74 / F ADM Date: 08/18/24 Loc: HO.HMGCX Attending Dr: Jayson Bean MD Ordering Physician: Jayson Bean MD Date of Service: 08/18/24 Procedure(s): US pelvic limited Accession Number(s): [id number] cc: Jayson Bean MD; Liz Arguelles [facility] EXAMINATION: US PELVIC, LIMITED CLINICAL INFORMATION: Left [...] by: Reese Vernon MD 08/18/2024 11:10 AM [facility] Dictated By: Reese Vernon MD Signed By: <Electronically signed by Reese Vernon MD in OV> 08/18/24 1110 DD/ 2 TD/TT: 08/18/24940 Occupational Nurse: Reason For Referral No Information Medications Medication SIG (Take, Route, Fr equency, Duration) Notes Start Date End Date Status Cephalexin 500 MG 1 capsule Orally jas ry 6 hrs; Duration: 7 days 08/18/2024 Active Furosemide 40 MG 1 tablet Orally Once a day; Duration: 30 day(s) 08/16/2024 Active Spironolactone 100 MG 1 tablet Orally On ce a day; Duration: 30 day(s) 08/16/2024 Active Immunizations Vaccine Route Administration Date Status Comme nts Influenza Unknown 08/16/2024 Refused Problems Problem Type SNOMED Code ICD Code Onset Dates Problem Status W/U Status Risk Notes Problem Colon cancer screening (606939833) Colon cancer screening (Z12.11) Active confirmed Problem Cirrhosis of liver (56339204) Other cirrhosis of liver (K74.69) Active confirmed Problem Ascites (002824805) Other ascites (R18.8) Active confirmed Problem Pre-surgery evaluation (787995327) Other specified pre-operative examination (Z01.818) Active confirmed Vital Signs Temperature 98.0 degrees Fahrenheit 08/16/2024 Blood pressure diastolic 00 mm Hg 08/16/2024 Height 66 in 08/16/2024 Blood pressure systolic 000 mm Hg 08/16/2024 Weight 168 lb 4 oz lbs 08/16/2024 BMI 27.15 kg/m2 08/16/2024 Encounters Encounter Location Date Provider Diagnosis [facility] [address] [place] [phone] 08/16/2024 Jayson Bean Jr Other ascites R18.8 ; Other cirrhosis of liver K74.69 and Colon cancer screening Z12.11 [facility] [address] [place] [phone] 08/18/2024 Jayson Bean Jr [facility] [address] [place] [phone] 08/25/2024 Jayson Bean Jr [facility] [address] [place] [phone] 09/09/2024 Jayson Bean Jr Assessments Encounter Date Diagnosis (ICD Code) Assessment Notes Treatment Notes Treatment Clinical Notes Section Notes 08/16/2024 Other cirrhosis of liver (ICD-10 - K74.69) We reviewed her emergency department records, labs, imaging, him know the results in detail today. The etiology for her cirrhosis is not clear but may represent underlying fatty liver. Hepatitis serologies were negative. Alcohol use does not appear to be an issue. We discussed the differential diagnosis for causes of cirrhosis today. Autoimmune markers and iron studies will be obtained. Diuretic therapy is started. She is advised to have laboratory studies one week after starting diuretics. She is due for colonoscopy and this will be arranged. Upper endoscopy will be done at the same time because of cirrhosis to rule out esophageal varices. Today's visit was 60 minutes. 08/16/2024 Other ascites (ICD-10 - R18.8) labs to be done 1 week after starting diuretics. We reviewed her emergency department records, labs, imaging, him know the results in detail today. The etiology for her cirrhosis is not clear but may represent underlying fatty liver. Hepatitis serologies were negative. Alcohol use does not appear to be an issue. We discussed the differential diagnosis for causes of cirrhosis today. Autoimmune markers and iron studies will be obtained. Diuretic therapy is started. She is advised to have laboratory studies one week after starting diuretics. She is due for colonoscopy and this will be arranged. Upper endoscopy will be done at the same time because of cirrhosis to rule out esophageal varices. Today's visit was 60 minutes. 08/16/2024 Colon cancer screening (ICD-10 - Z12.11) Colonoscopy material was printed We reviewed her emergency department records, labs, imaging, him know the results in detail today. The etiology for her cirrhosis is not clear but may represent underlying fatty liver. Hepatitis serologies were negative. Alcohol use does not appear to be an issue. We discussed the differential diagnosis for causes of cirrhosis today. Autoimmune markers and iron studies will be obtained. Diuretic therapy is started. She is advised to have laboratory studies one week after starting diuretics. She is due for colonoscopy and this will be arranged. Upper endoscopy will be done at the same time because of cirrhosis to rule out esophageal varices. Today's visit was 60 minutes. Plan Of Treatment Pending Test Test Name Order Date CHEM 7 PROFILE 08/16/2024 LIVER PROFILE 08/16/2024 IRON + IBC (FE) 08/16/2024 FERRITIN 08/16/2024 CBC w/o DIFF 08/16/2024 MITOCHONDRIAL AB 08/16/2024 SMOOTH MUSCLE ANTIBODIES 08/16/2024 US abdomen limited 08/16/2024 Future Test Test Name Order Date COLONOSCOPY 08/03/2015 UPPER GI ENDOSCOPY 08/16/2024 COLONOSCOPY 08/16/2024 Insurance Providers Payer Name Payer Address Payer Phone Subscriber Number Group Number Insured Name Patient Relationship to Insured Coverage Start Date Coverage End Date MEDICARE OF [place] [address] [place] [address] [id number] LAW SERRANO Self - patient is the insured [employer] ATT[employer] CLAIMS [address] [place] [address] [id number] LAW SERRANO Self - patient is the insured Medical (General) History Medical History History ICD Code Hyperlipidemia Aortic stenosis, mild Colonoscopy 04/13, normal, five-year foll owup Anxiety Cirrhosis/ascites Surgical History Surgery Date(Month/Year) Hospitalization History Reason Date(Month/Year) ascites
== END 2025-07-27 14:52 | disposition home or self-care (01) ==
LOC: HO.HMCC 11:18
PROVIDERS: PCP Nurse Practitioner Family; Visit Provider Nurse Practitioner Family
DX: Z00.00 Encounter for general adult medical examination without abnormal findings (principal); I10 Essential (primary) hypertension; E55.9 Vitamin D deficiency, unspecified; Z78.0 Asymptomatic menopausal state; R01.1 Cardiac murmur, unspecified

== ENCOUNTER → 2025-07-27 11:17 | Outpatient (BNVA) | payer MEDICARE, SELFPAY | PROVIDERS: PCP Nurse Practitioner Family; Visit Provider Nurse Practitioner Family | DX: Z13.31 Encounter for screening for depression (principal) | CPT/HCPCS: 96127 ==

== ENCOUNTER → 2025-09-12 08:53 | Outpatient (REF) | payer MEDICARE, SELFPAY ==
--- NOTE | 2025-09-12 08:56 | CA_ITS ---
Transthoracic Echocardiogram Patient (Last, First, Middle): Carolina Amezcua, Gender: F Date of : 1950 Age: 75 Procedure Date: 09/12/2025 Procedure Type: Transthoracic Echocardiogram Location: OP Height: 165.1 cm Weight: 68.04 kg BSA: 1.75 m2 Heart Rate: 93 bpm BP: 134 / 72 mmHg Certified Scrub Tech: SB Referring MD: Kalyan Arguelles [facility] County Auditor: Pepe Downs MD Symptoms: R01.1 - Cardiac murmur, unspecified Study Quality: Fair but adequate ECG Rhythm: Frequent atrial premature beats Conclusions: - 1. Normal LV ejection fraction of 65-70% with mild asymmetric septal hypertrophy with impaired relaxation filling pattern 2. Mild calcific aortic stenosis 3. Severe mitral annular calcification 4. Normal RV systolic pressure 5. Mildly dilated ascending aorta at 4 cm 6. No gross pericardial effusion Findings Left Ventricle Normal left ventricular size, thickness, and systolic function. The visually estimated ejection fraction is between 65-70%. Spectral Doppler is indicative of an impaired relaxation filling pattern. There is mild septal asymmetric hypertrophy. Right Ventricle Normal right ventricular cavity size and systolic function. Atria Both atria are normal in size. There is lipomatous hypertrophy of the interatrial septum. There is no evidence of interatrial shunt. Aortic Valve There is moderate calcification of the aortic valve. There is mild aortic valve stenosis. The peak aortic gradient is 33 mmHg.The mean gradient is 16 mmHg. The aortic valve area is 1.90 cm2. There is mild aortic valve regurgitation. Mitral Valve There is mild anterior and severe posterior mitral leaflet thickening. There is severe mitral annular calcification. There is trace mitral valve regurgitation. There is no mitral valve stenosis. Pulmonic Valve The pulmonic valve is likely normal. There is trace pulmonic valve regurgitation. Tricuspid Valve Normal tricuspid valve structure. There is mild tricuspid valve regurgitation. The right ventricular systolic pressure is normal. The right ventricular systolic pressure is 34 mmHg. Normal right atrial pressure. There is no evidence of pulmonary hypertension. Great Vessels The pulmonary artery was not well visualized. There is mild dilatation of the ascending aorta measuring 4.00 cm. Venous The inferior vena cava is normal in size and collapses greater than 50% with inspiration. Pericardium/Pleural There is no evidence of pericardial effusion. Prior Study Comparison No significant change compared to prior study dated: 07/23/2024. Measurements 2D Linear Measurements IVSd: 1.23 0.6-0.9/0.6-1.0 cm LVIDd: 3.86 3.9-5.3/4.2-5.9 cm LVIDd Index: 2.21 2.4-3.2/2.2-3.1 cm/m2 LVIDs: 2.38 2.0-3.6 cm LVPWd: 0.65 0.7-1.1 cm LA Diam: 3.10 2.7-3.8/3.0-4.0 cm LAIDs Index: 1.77 1.5-2.3 cm/m2 LV Mass: 136.36 67-162/88-224 g LV Mass Index: 77.92 43-95/49-115 g/m2 LVOT Diam: 2.20 3.0+(-)1.3 cm 2D Systolic Function EF 4C: 73.60 >55% EF 2C: 72.00 >55% EF BiP: 72.50 >55% Mitral Valve MV VTI: 0.24 MV Pk Jeremy: 1.23 MV Mn Jeremy: 0.67 MV Pk Grad: 6.00 MV Mn Grad: 2.00 MV Pk E: 0.57 MV PK A: 1.16 MV Decel Time: 338.00 E/A: 0.50 E'Lateral: 5.98 E'Medial: 5.44 E/E' Med: 10.50 E/E' Lat: 9.50 PHT: 99.00 MVA PHT: 2.22 MVA Continuity: 3.85 Decel [place]: 1.69 Aortic Valve AoV Pk Jeremy: 2.89 AoV Mn Jeremy: 1.87 AoV VTI: 0.45 AoV Pk Grad: 33.00 Aov Mn Grad: 16.00 LYLA Cont.VTI: 1.90 LVOT LVOT Pk Jeremy: 1.38 LVOT Mn Jeremy: 0.90 LVOT VTI: 0.25 LVOT Pk Grad: 8.00 LVOT Mn Grad: 4.00 LVOT Diam: 2.20 LVOT Area: 3.80 Diastolic Function MV Pk E: 0.57 MV Pk A: 1.16 E/A: 0.50 E'Medial: 5.44 E/E' Med: 10.50 E' Laterial: 5.98 E/E' Lat: 9.50 Right Ventricle TAPSE (mm): 19.50 TVS' Jeremy: 15.30 Tricuspid Valve TR Pk Jeremy: 2.78 TR Pk Grad: 31.00 RA Press: 3.00 RVSP: 34.00 Great Vessels Aorta Sinus of Valsalva: 3.30 2.0-3.5 cm Ao Asc: 4.00 2.1-3.4 cm Pulmonary Valve PV Pk Jeremy: 1.02 Peak PV Grad: 4.00 Updated in Other Vendor System with Status of Final Pepe Downs MD electronically signed on 09/12/2025 10:36:04 AM with status of Final
== END ==
LOC: HO.CARD 08:53
PROVIDERS: PCP Nurse Practitioner Family; Visit Provider Nurse Practitioner Family
DX: R01.1 Cardiac murmur, unspecified (principal)
CPT/HCPCS: 93306

== ENCOUNTER → 2025-09-12 08:56 | Outpatient (BNV) | payer MEDICARE, SELFPAY | PROVIDERS: PCP Nurse Practitioner Family; Visit Provider Internal Medicine Cardiovascular Disease | DX: I35.0 Nonrheumatic aortic (valve) stenosis (principal); I34.81 Nonrheumatic mitral (valve) annulus calcification; I77.810 Thoracic aortic ectasia; I42.2 Other hypertrophic cardiomyopathy | CPT/HCPCS: 93306 ==